=== PATIENT | male | born 1995 | race Caucasian/White ===

== ENCOUNTER 2016-08-20 09:43 | Inpatient (IN) | payer MEDICAID, OTHER ==
[~2016-08-20] VITALS: Ht 172.7 cm; Wt 74.0 kg
[~2016-08-20 09:43] MED LIST: BENA25CA2 PO; LITH300 PO; LORA0.5T PO; QUET25 PO; RISP3TAB23 PO
[2016-08-20 09:53] VITALS: BP 147/91; PULSE 129; RESP 18; TEMP 98.1; O2SAT 99
--- NOTE | 2016-08-20 10:21 | PD ---
HPI Chief Complaint: Psychiatric Symptoms Time Seen by Provider: 10:02 Travel History International Travel<30 days: No Contact w/Intl Traveler<30days: No Traveled to known affect area: No History of Present Illness HPI Patient is a 21-year-old male who was brought to the emergency room by police officers under Schreiber act. Patient reports that he is feeling extremely anxious , and reports that he has been feeling suicidal. patient denies any active plans for suicide. Reports that he does abuse drugs - he does use cocaine recreationally and last used at 5 weeks ago. Patient here for psychiatric evaluation. Patient denies homicidal idealizations PFSH Past Medical History ADHD: No Bipolar Disorder: Yes Anxiety: Yes Depression: Yes Diminished Hearing: No Endocrine: No Genitourinary: No Musculoskeletal: No Respiratory: No Immunizations Current: Yes Migraines: No Schizophrenia: Yes Thyroid Disease: No Ulcer: No Past Surgical History Other Surgery: No Social History Alcohol Use: No Tobacco Use: No Substance Use: No Allergies-Medications (Allergen,Severity, Reaction): Coded Allergies: No Known Allergies (Unverified , 12/09/15) Reported Meds & Prescriptions Reported Meds & Active Scripts Active Quetiapine Fumarate 25 mg (Quetiapine Fumarate) 25 Mg Tab 25 Mg PO HS 15 Days Risperdal (Risperidone) 3 Mg Tab 3 Mg PO HS 30 Days Reported Lorazepam 0.5 Mg Tab 0.5 Mg PO DAILY [place] Carbonate 300 Mg Tab 300 Mg PO QHS Benadryl (Diphenhydramine HCl) 25 Mg Cap 50 Mg PO DAILY Review of Systems General / Constitutional: No: Fever Eyes: No: Visual changes HENT: No: Headaches Cardiovascular: No: Chest Pain or Discomfort Respiratory: No: Shortness of Breath Gastrointestinal: No: Abdominal Pain Genitourinary: No: Dysuria Musculoskeletal: No: Pain Skin: No Rash Neurologic: No: Weakness Psychiatric: Positive: Anxiety, Depression, Suicidal Ideations Endocrine: No: Polydipsia Hematologic/Lymphatic: No: Easy Bruising Physical Exam Narrative GENERAL: No acute distress, nontoxic SKIN: Focused skin assessment warm/dry. HEAD: Atraumatic. Normocephalic. EYES: Pupils equal and round. No scleral icterus. No injection or drainage. ENT: No nasal bleeding or discharge. Mucous membranes pink and moist. NECK: Trachea midline. No JVD. CARDIOVASCULAR: Regular rate and rhythm. No murmur appreciated. RESPIRATORY: No accessory muscle use. Clear to auscultation. Breath sounds equal bilaterally. GASTROINTESTINAL: Abdomen soft, non-tender, nondistended. Hepatic and splenic margins not palpable. MUSCULOSKELETAL: No obvious deformities. No clubbing. No cyanosis. No edema. NEUROLOGICAL: Awake and alert. No obvious cranial nerve deficits. Motor grossly within normal limits. Normal speech. PSYCHIATRIC: Flat affect, patient anxious with suicidal thoughts Data Data Last Documented VS Vital Signs Date Time Temp Pulse Resp B/P Pulse Ox O2 Delivery O2 Flow Rate FiO2 08/20/16 09:53 98.1 129 18 147/91 99 Orders Complete Blood Count With Diff (08/20/16 10:06) Comprehensive Metabolic Panel (08/20/16 10:06) Psych Screen (08/20/16 10:06) Drug Screen, Random Urine (08/20/16 10:06) [facility] Medical Decision Making Medical Screen Exam Complete: Yes Emergency Medical Condition: Yes Interpretation(s) Vital Signs Date Time Temp Pulse Resp B/P Pulse Ox O2 Delivery O2 Flow Rate FiO2 08/20/16 09:53 98.1 129 18 147/91 99 Differential Diagnosis Bipolar disorder with harini, psychosis, anxiety reaction, drug reaction Narrative Course Patient is a 21-year-old male who was brought to emergency room by police officers under Schreiber act. As per police officers, patient complains of suicidal thoughts. Patient reports that he has been extremely anxious and has had suicidal thoughts, patient with no active plans for suicide at this time. Patient does endorse that he does use drugs, specifically cocaine, last use was 5 weeks ago. Patient with no other complaints at this time. Plan to obtain psychiatric screening labs, once cleared, will have patient seen by psychiatrically screeners. Leah Enamorado DO August 20, 2016 10:20
[2016-08-20 10:37] LABS: AUTOMATED NEUTROPHIL # 10.1 TH/MM3 (1.8-7.7); BASOPHIL # 0.1 TH/MM3 (0-0.2); BASOPHIL % 0.4 % (0.0-2.0); EOSINOPHIL % 0.2 % (0.0-4.0); HEMATOCRIT 47.4 % (39.0-51.0); HEMO FLAGS DIFF FINAL; LYMPH % 13.8 % (9.0-44.0); LYMPHOCYTE # 1.9 TH/MM3 (1.0-4.8); MEAN CELL VOLUME 84.4 FL (80.0-100.0); MEAN CORPUSCULAR HEMOGLOBIN 28.3 PG (27.0-34.0); MEAN CORPUSCULAR HGB CONC 33.5 % (32.0-36.0); MONO % 10.7 % (0.0-8.0); NEUT % 74.9 % (16.0-70.0); PLATELET COUNT 238 TH/MM3 (150-450); RED BLOOD COUNT 5.61 MIL/MM3 (4.50-5.90); RED CELL DISTRIBUTION WIDTH 13.7 % (11.6-17.2); WHITE BLOOD COUNT 13.5 TH/MM3 (4.0-11.0)
[2016-08-20] MEDS ORDERED: LORazepam 1 MG TAB PO ONE (10:45)
[2016-08-20 10:48] LABS: AMPHETAMINE, URINE NEG (NEG); BARBITURATES, URINE NEG (NEG); COCAINE, URINE NEG (NEG)
[2016-08-20 10:55] LABS: ANION GAP 9 MEQ/L (5-15); AST (GOT) 75 U/L (15-39); BICARBONATE 25.4 MEQ/L (21.0-32.0); BLOOD UREA NITROGEN 11 MG/DL (7-18); CHLORIDE 103 MEQ/L (98-107); GLOMERULAR FILTRATION RATE 81 ML/MIN (>89); POTASSIUM 3.5 MEQ/L (3.5-5.1); SODIUM (NA) 137 MEQ/L (136-145)
[2016-08-20 10:58] LABS: ALKALINE PHOSPHATASE 82 U/L (45-117); ALT (GPT) 51 U/L (9-52); TOTAL BILIRUBIN ADULT 0.6 MG/DL (0.2-1.0)
[2016-08-20 12:28] VITALS: BP 137/77; PULSE 113; RESP 20; TEMP 98.7; O2SAT 99
[2016-08-20 13:27] VITALS: BP 137/77; PULSE 113; RESP 20; TEMP 97.1; O2SAT 99
[2016-08-20 15:03] VITALS: BP 131/77; PULSE 104; RESP 20; TEMP 99.3; O2SAT 97
--- NOTE | 2016-08-20 15:52 | PD ---
History of Present Illness Chief Complaint: Psychiatric Symptoms Time Seen by Provider: 15:40 Travel History International Travel<30 Days: No Contact w/Intl Traveler<30days: No Known affected area: No Legal Status Legal Status: Schreiber Act Schreiber Act Signed By: Gwen Saravia Schreiber Act Comment: Per DAVID Montano advised he might hurt himself due to his anxiety History of Present Illness: History of Present Illness HPI Patient is a 21-year-old male with history of bipolar disorder, manic as well as psychosis, nos who was brought to the emergency room by police officers under Schreiber act.As per that report the patient reported to police that he may harm himself due to the anxiety as well as" not feeling right in his head". Patient was monitored in J pod. he presented with restless behavior but not agitated. He also reported having had a stroke this morning. EMR is reviewed. the patient was last admitted to [facility] in Dec 2015 . Current toxicology is negative although he reported to staff that he has used cocaine a few days ago. Patient is alert and oriented. He appears internally preoccupied but denies any hallucinations or paranoia. Decreased concentration and attention. Inappropriate affect. he is observed jumping up and down in his room. When asked why he came to the hospital he states " I needed to get to mod". He is unable to tell me what mod is. He then states that he was not sleeping. He admits to feelings of wanting to harm himself and shows me that he has attempted by rubbing his leg. I am unable to obtain any other clinical information at this time and perseveres on "going to mod" . Staff have been unable to obtain collateral information from his family. PFSH Past Medical History ADHD: No Bipolar Disorder: Yes Anxiety: Yes Depression: Yes Diminished Hearing: No Endocrine: No Genitourinary: No Musculoskeletal: No Respiratory: No Immunizations Current: Yes Migraines: No Schizophrenia: Yes Thyroid Disease: No Ulcer: No Past Surgical History Other Surgery: No Psychiatric History Psychiatric History Hx Psychiatric Treatment: patient has been seen at adolescent unit in 2013 and has been seen at adult unit in Dec 2015. he returns with psychotic features hearing voices History of Inpatient Treatment: Yes Guns or firearms in home: No (unknown) Social History Lives with his mother. No other information obtained. Hx Alcohol Use: No Hx Tobacco Use: No Hx Substance Use: No Substance Use Type: Alcohol, Crack, Marijuana, Amphetamines-Stimulants, Nicotine/Cigarettes, GHB, Prescription Medications, Benzos (Valium,Xanax), Cocaine, Synth Opiates-Pain Pills, Cough-Cold Pills Other Substances Used: Polysusbstance Abuse since age 14 per records. Hx of Substance Use Treatment: No Family Psychiatric History unknown Allergies-Medications (Allergen,Severity, Reaction): Coded Allergies: No Known Allergies (Unverified , 12/09/15) Reported Meds & Prescriptions Reported Meds & Active Scripts Active Quetiapine Fumarate 25 mg (Quetiapine Fumarate) 25 Mg Tab 25 Mg PO HS 15 Days Risperdal (Risperidone) 3 Mg Tab 3 Mg PO HS 30 Days Reported Lorazepam 0.5 Mg Tab 0.5 Mg PO DAILY [place] Carbonate 300 Mg Tab 300 Mg PO QHS Benadryl (Diphenhydramine HCl) 25 Mg Cap 50 Mg PO DAILY Review of Systems ROS Limitations: Clinical Condition Exam Alert: Yes [place]: Person Mood: Other (restless) Affect: Other (innapropriatte.) Speech: Clear, Illogical Eye Contact: Fixed Memory Intact: Comment (not tested) Delusions: No (he deneis ) Suicidal: Ideation (reports posiitve by rubbing his leg. ) Homicidal: Ideation (negative) Insight/Judgement poor. impaired MDM Medical Decision Making Medical Record Reviewed: Yes Assessment/Plan 21 year old male with previous history of bipolar disorder with harini who presents rakesh Ed under a BA. At this time patient appears to be experiencing psychotic symptoms and is experiencing difficulty with his thoughts. We have been unable to obtain any collateral from his family. Inpatient psychiatric admission is recommended to further evaluate, maintain safety and adjust psychiatric medications. Orders Complete Blood Count With Diff (08/20/16 10:06) Comprehensive Metabolic Panel (08/20/16 10:06) Psych Screen (08/20/16 10:06) Drug Screen, Random Urine (08/20/16 10:06) Lorazepam (Ativan) (08/20/16 10:45) Diet Regular Basic (08/20/16 Lunch) Diet Regular Basic (08/20/16 Dinner) Results Vital Signs Date Time Temp Pulse Resp B/P Pulse Ox O2 Delivery O2 Flow Rate FiO2 08/20/16 15:03 99.3 104 20 131/77 97 Room Air 08/20/16 13:27 97.1 113 20 137/77 99 08/20/16 12:28 98.7 113 20 137/77 99 Room Air 08/20/16 09:53 98.1 129 18 147/91 99 Laboratory Tests Test 08/20/16 08/20/16 10:20 10:25 White Blood Count 13.5 Red Blood Count 5.61 Hemoglobin 15.9 Hematocrit 47.4 Mean Corpuscular Volume 84.4 Mean Corpuscular Hemoglobin 28.3 Mean Corpuscular Hemoglobin 33.5 Concent Red Cell Distribution Width 13.7 Platelet Count 238 Mean Platelet Volume 8.6 Neutrophils (%) (Auto) 74.9 Lymphocytes (%) (Auto) 13.8 Monocytes (%) (Auto) 10.7 Eosinophils (%) (Auto) 0.2 Basophils (%) (Auto) 0.4 Neutrophils # (Auto) 10.1 Lymphocytes # (Auto) 1.9 Monocytes # (Auto) 1.4 Eosinophils # (Auto) 0.0 Basophils # (Auto) 0.1 CBC Comment DIFF FINAL Differential Comment Sodium Level 137 Potassium Level 3.5 Chloride Level 103 Carbon Dioxide Level 25.4 Anion Gap 9 Blood Urea Nitrogen 11 Creatinine 1.15 Estimat Glomerular Filtration 81 Rate Random Glucose 111 Calcium Level 9.4 Total Bilirubin 0.6 Aspartate Amino Transf 75 (AST/SGOT) Alanine Aminotransferase 51 (ALT/SGPT) Alkaline Phosphatase 82 Total Protein 7.9 Albumin 4.6 Urine Opiates Screen NEG Urine Barbiturates Screen NEG Urine Amphetamines Screen NEG Urine Benzodiazepines Screen NEG Urine Cocaine Screen NEG Urine Cannabinoids Screen NEG Diagnosis Primary Impression: Bipolar disorder, most recent episode manic Admitting Information Admitting Physician Requests: Admit (Dr. Agarwal) Gail Layne August 20, 2016 15:52
[2016-08-20] MEDS ORDERED: diphenhydrAMINE HCL 50 MG CAP PO ONE (16:15)
[2016-08-20] MEDS ORDERED: ALUMINUM/MAGNESIUM/SIMETH 30 ML CUP PO PRN (16:15)
[2016-08-20] MEDS ORDERED: HALOPERIDOL 5 MG TAB PO ONE (16:15)
[2016-08-20] MEDS ORDERED: MAGNESIUM HYDROXIDE SUSP 30 ML CUP PO PRN (16:15)
[2016-08-20 17:02] VITALS: BP 130/76; TEMP 99
[2016-08-20 18:13] VITALS: BP 151/88; PULSE 130; RESP 19; TEMP 98.2; O2SAT 96
[2016-08-21 06:00] VITALS: BP 115/63; PULSE 122; RESP 18; TEMP 97.9; O2SAT 97
[2016-08-21 08:02] LABS: ANION GAP 12 MEQ/L (5-15); BICARBONATE 24.7 MEQ/L (21.0-32.0); BLOOD UREA NITROGEN 11 MG/DL (7-18); CHLORIDE 103 MEQ/L (98-107); GLOMERULAR FILTRATION RATE 76 ML/MIN (>89); HDL CHOLESTEROL 50.7 MG/DL (40.0-60.0); LDL CHOLESTEROL 84 MG/DL (0-99); POTASSIUM 3.3 MEQ/L (3.5-5.1); SODIUM (NA) 140 MEQ/L (136-145)
[2016-08-21 12:57] LABS: HEMOGLOBIN A1b 1.5 %; HEMOGLOBIN Ao 86.1 %; HEMOGLOBIN LA1C 2.1 %; HEMOGLOBIN P3 3.5 %
[2016-08-21] MEDS ORDERED: LORazepam 2 MG/ML VIAL IV PUSH PRN ×4 (13:00)
[2016-08-21] MEDS ORDERED: FLUMAZENIL 0.5 MG/5 ML VIAL IV PUSH PRN (13:00)
[2016-08-21] MEDS ORDERED: LORazepam 2 MG TAB PO PRN (13:00)
[2016-08-21] MEDS ORDERED: LORazepam 1 MG TAB PO PRN (13:00)
--- NOTE | 2016-08-21 13:49 | HHI.HP ---
Provisional Diagnosis Admission Date August 20, 2016 at 16:09 [place] I. 1. Other psychotic disorder, acute decompensation Suspect mood disorder with psychotic features such as bipolar disorder but rule out primary psychotic disorder such as schizoaffective disorder, bipolar type [place] II. Deferred [place] V. GAF is 30 presently Certification of Person's Competence To Provide Express and Informed Consent I have personally examined Dusty Moses , a person being served at [facility] on, August 21, 2016 13:49. Express and informed consent means consent voluntarily given in writing, by a competent person, after sufficient explanation and disclosure of the subject matter involved to enable the person to make a knowing and willful decision without any element of force, fraud, deceit, duress, or other form of constraint or coercion. This person is 18 years of age or older, is not now known to be incompetent to consent to treatment with a guardian advocate, and does not have a health care surrogate or proxy currently making medical treatment decisions. I have found this person to be one of the following: [] Competent to provide express and informed consent, as defined above, for voluntary admission to this facility and is competent to provide express and informed consent for treatment. He/she has the consistent capacity to make well reasoned, willful, and knowing decisions concerning his or her medical or mental health treatment. The person fully and consistently understands the purpose of the admission for examination/placement and is fully capable of personally exercising all rights [place] [x] Incompetent to provide express and informed consent to voluntary admission, and this is incompetent to provide express and informed consent to treatment. The person must be transferred to involuntary status and a petition for a guardian advocate filed with the Circuit Court. [] Refusing to provide express and informed consent to voluntary admission but is competent to provide express and informed consent for treatment. The person must be discharged or transferred to involuntary status. Form shall be completed within 24 hours of a person's arrival at the receiving facility and filed in the clinical record of each person: 1. Admitted on a voluntary basis 2. Permitted to provide express and informed consent to his/her own treatment 3. Allowed to transfer from involuntary to voluntary status 4. Prior to permitting a person to consent to his or her own treatment after having been previously found incompetent to consent to treatment. History of Present Illness Capacity: Lacks Capacity HPI Mr. Moses is a 21-year-old male with a chart history of psychosis versus bipolar disorder who was brought in under a Schreiber act by law enforcement alleging that he did not feel right in his head and stated he might hurt himself. Reviewing our electronic medical record, I see the patient has an extensive history of inpatient psychiatric admissions, most recently in December of last year when I discharged him AGAINST MEDICAL ADVICE. Patient seen and examined. Chart reviewed. Case discussed with nurse on the inpatient unit. On my examination today, the patient presents as quite impulsive and intrusive. He is distractible. Thought process is disorganized with some degree of loosening of associations. He appears internally stimulated although he denies AVH. His affect is somewhat expansive and he is noted to be dancing and otherwise gesticulating in the halls. Of his reason for coming into the hospital he says "I just wanted a refill on my medications or change." He denies any suicidal or homicidal ideation but appears unreliable to contract for safety in his present state. He reports that his sleep and appetite have been fair. Psychiatric interview was somewhat limited because of his thought disorder. He is quite perseverative on discharge. I did endeavor to obtain collateral information from patient's mother and also his father over the phone at the numbers listed in the electronic medical record. I left voicemails for both of them requesting a call back. Past psychiatric history: Patient has a history of psychiatric diagnoses as noted above. He reports that he follows with a psychiatrist by the name of Marina and is prescribed lithium at a dose of 300 mg a day. He reports that he was admitted at a hospital called [facility] about 1 month ago. He denies a history of suicide attempts. Family history: Patient denies any family history of mental illness. Chemical dependency history: Patient denies any abuse of drugs or alcohol. Social history: Patient reports that he lives with his parents. He is single with no children. He does not work. He denies any or legal history. He denies any access to guns or firearms. He denies any jainism or spiritual beliefs. Review of Systems ROS Limitations: Psychotic, Poor Historian Except as stated in HPI: all other systems reviewed are Neg Past Psych History Psychological trauma history No reported trauma history to me. Violence risk - others (6 mos) Lower imminent risk. No HI. Violence risk - self (6 mos) Indeterminate. Substance Abuse History Drugs/Alcohol past 12 months See above. Past Family Social History Coded Allergies: No Known Allergies (Unverified , 12/09/15) Past Medical History See EMR. Active Scripts Quetiapine Fumarate 25 Mg Tab25 Mg PO HS 15 Days Ref 1 Prov:Dominguez Agarwal MD 01/05/16 Risperidone (Risperdal)3 Mg Tab3 Mg PO HS 30 Days Ref 0 Prov:Silverio Harmon MD 11/17/14 Reported Medications Lorazepam 0.5 Mg Tab0.5 Mg PO DAILY 12/09/15 [place] Carbonate (Lithotabs)300 Mg [id number] Mg PO qhs 12/09/15 Diphenhydramine HCl (Benadryl)25 Mg Cap50 Mg PO DAILY 12/09/15 Current Medications Medications (Trade) Dose Ordered Sig/Shadi Route Start Time Stop Time Status Last Admin (Tylenol) 650 mg Q4H PRN PO 08/20/16 16:15 (Milk Of Magnesia Liq) 30 ml DAILY PRN PO 08/20/16 16:15 (Mag-Al Plus Susp Liq) 30 ml Q6H PRN PO 08/20/16 16:15 (Romazicon Inj) 0.2 mg Q1M PRN IV PUSH 08/21/16 13:00 (Ativan) 1 mg Q4H PRN PO 08/21/16 13:00 (Ativan Inj) 1 mg Q4H PRN IV PUSH 08/21/16 13:00 (Ativan) 2 mg Q2H PRN PO 08/21/16 13:00 (Ativan Inj) 2 mg Q2H PRN IV PUSH 08/21/16 13:00 (Ativan Inj) 2 mg Q1H PRN IV PUSH 08/21/16 13:00 (Ativan Inj) 2 mg Q15M PRN IV PUSH 08/21/16 13:00 Family History See above Social History See above Patient's Strengths (min. 2) In a monitored setting. Verbally fluent. Physical Exam Physical examination completed by the ED provider. On my examination today, the patient appears to be in no acute physical distress. He is quite fidgety and hyperkinetic. No abnormal motor movements noted otherwise. Laboratories and vital signs reviewed: Vital Signs Vital Signs Date Time Temp Pulse Resp B/P Pulse Ox O2 Delivery O2 Flow Rate FiO2 08/21/16 06:00 97.9 122 18 115/63 97 08/20/16 15:03 Room Air Lab Results Item Value Date Time White Blood Count 13.5 TH/MM3 H 08/20/16 1020 Hemoglobin 15.9 GM/DL 08/20/16 1020 Platelet Count 238 TH/MM3 08/20/16 1020 Sodium Level 140 MEQ/L 08/21/16 0645 Potassium Level 3.3 MEQ/L L 08/21/16 0645 Chloride Level 103 MEQ/L 08/21/16 0645 Carbon Dioxide Level 24.7 MEQ/L 08/21/16 0645 Blood Urea Nitrogen 11 MG/DL 08/21/16 0645 Creatinine 1.22 MG/DL 08/21/16 0645 Hemoglobin A1c 5.4 % 08/21/16 0645 Aspartate Amino Transf (AST/SGOT) 75 U/L H 08/20/16 1020 Alanine Aminotransferase (ALT/SGPT) 51 U/L 08/20/16 1020 Alkaline Phosphatase 82 U/L 08/20/16 1020 [place] Level LESS THAN 0.1 MEQ/L L 08/21/16 1120 Urine toxicology negative. EKG: Sinus tach with short MD interval. QTc 399ms. Mental Status Examination Patient is casually dressed. He is somewhat disheveled. He is awake and alert and oriented to person and hospital at least. He is somewhat hyperkinetic but no other motoric abnormalities noted. Speech is somewhat rambling and pressured. Language and fund of knowledge are difficult to assess but seem at least average. Mood is somewhat elevated and affect is expansive. Thought process somewhat disorganized with loosening of associations. No isaiah delusions. Denies audiovisual hallucinations but appears internally stimulated. Denies suicidal or homicidal ideation but it is not clear that he is reliably contract for safety in his present state. Insight and judgment are poor. Assessment & Plan Problem List: (1) Other psychotic disorder not due to a substance or known physiological condition ICD Code: F28 Assessment & Plan This is a 21-year-old male with psychiatric history as detailed above who presents under a Schreiber act. On my examination today, the patient seems disinhibited, intrusive/impulsive, internally stimulated and his thoughts are disorganized with loosening of associations. Chart suggests a history of either a primary psychotic disorder with affective features or a mood disorder with psychotic features. In any event, he appears severely decompensated with respect to this illness. His lithium level was undetectable. I will admit the patient to the inpatient psychiatric unit for safety, observation and stabilization. Admit inpatient. Involuntary status. I've completed first opinion. Consult for second opinion. Request healthcare surrogate and guardian advocate. Given ambiguity whether this patient has a primary psychotic or affective illness, I will prefer Zyprexa 10 mg at bedtime to patient's previously prescribed lithium. Ativan as needed for anxiety, Cogentin as needed for EPS, Ambien as needed for sleep. Check a CBC, BMP and TSH in the morning along with a hemoglobin A1c and lipid panel. Vitals every shift. Counselor to see. Disposition planning. Estimated length of stay: 7-9 days. Discharge Planning Pending psychiatric stabilization Request HC Surrog/Guard Advoc?: Yes Dominguez Agarwal MD August 21, 2016 13:49
[2016-08-21] MEDS ORDERED: LORazepam 2 MG/ML VIAL IM PRN (15:15)
[2016-08-21] MEDS ORDERED: BENZTROPINE MESYLATE 2 MG/2 ML VIAL IM PRN (15:15)
[2016-08-21] MEDS ORDERED: POTASSIUM CHLORIDE 10 MEQ CONTROLLED RELEASE TAB PO ONE (16:00)
[2016-08-21 17:14] VITALS: BP 145/86; PULSE 106; RESP 18; TEMP 98.1; O2SAT 97
[2016-08-21] MEDS: LORazepam 1 MG TAB PO PRN (19:13)
[2016-08-21] MEDS ORDERED: OLANZapine ODT 10 MG TAB PO SCH (21:00)
[2016-08-22] MEDS: LORazepam 1 MG TAB PO PRN ×2 (05:24→14:46)
[2016-08-22 06:01] VITALS: BP 147/74; PULSE 18; RESP 18; TEMP 97.8; O2SAT 96
[2016-08-22] MEDS ORDERED: ARIPiprazole 10 MG TAB PO SCH (09:00)
--- NOTE | 2016-08-22 10:16 | HHI.PYPN ---
Subjective Remarks Patient seen and examined. Chart reviewed. Case discussed with nursing staff. I note that patient's oral intake has not been very good today for unclear reasons. He did eat well yesterday. For me today, the patient is fairly needy and intrusive. He remains perseverative on discharge. He appears internally preoccupied. I discuss the concerns raised by his mother, and the patient disregards these and blandly says that he has spoken with his mother and that she feels that he is ready to come home. Some echo phenomena noted. Denies side effects from medications. Review of Systems ROS Limitations: Psychotic, Poor Historian Except as stated in HPI: all other systems reviewed are Neg Objective Alert: Yes [place]: Person Mood: Anxious Affect: Blunted Memory Intact: Comment (not tested) Hallucinations: Auditory (internally preoccupied) Delusions: No Delusion Type: Other (no delusions) Suicidal: Ideation (no SI) Homicidal: Ideation (no HI) Insight/Judgment Poor Remarks No motor abnormalities noted. Thought process somewhat disorganized. Grooming and hygiene fair. Labs Test 08/21/16 11:20 [place] Level LESS THAN 0.1 MEQ/L Labs reviewed. Vitals/IOs Vital Signs Date Time Temp Pulse Resp B/P Pulse Ox O2 Delivery O2 Flow Rate FiO2 08/22/16 06:01 97.8 18 18 147/74 96 08/20/16 15:03 Room Air Assessment & Plan Problem List: (1) Schizophrenia ICD Code: F20.9 Assessment & Plan Titrate Abilify to 15 mg daily to target ongoing psychosis. Plan to ensure good oral tolerability and then switch to long-acting injectable Abilify Maintena. Continue to monitor on the inpatient unit in the meantime. Continue other medications and care as ordered. Justification for Cont. Inpt. Impairment in reality construction. Medication changes in process. High risk for decompensation in a less restrictive environment. Discharge Planning Pending psychiatric stabilization. I anticipate that the patient may be stable for discharge beginning or middle of next week. Request HC Surrog/Guard Advoc?: Yes Problem Qualifiers (1) Schizophrenia: Qualified Code: F20.3 - Undifferentiated schizophrenia Dominguez Agarwal MD August 22, 2016 10:16
[2016-08-22 10:19] VITALS: BP 130/80; PULSE 107; RESP 17; O2SAT 99
--- NOTE | 2016-08-22 14:02 | PD.CONS ---
Provisional Diagnosis Admission Date August 20, 2016 at 16:09 Antigo I. 1. Other psychotic disorder, acute decompensation Suspect mood disorder with psychotic features such as bipolar disorder but rule out primary psychotic disorder such as schizoaffective disorder, bipolar type Antigo II. Deferred Antigo V. GAF is 30 presently History of Present Illness Service Psychiatry Consult Requested By Primary Care Physician No Primary Care Physician HPI As per Dr. Agarwal :Mr. Moses is a 21-year-old male with a chart history of psychosis versus bipolar disorder who was brought in under a [place] act by law enforcement alleging that he did not feel right in his head and stated he might hurt himself. Reviewing our electronic medical record, I see the patient has an extensive history of inpatient psychiatric admissions, most recently in December of last year when I discharged him AGAINST MEDICAL ADVICE.Patient seen and examined. Chart reviewed. Case discussed with nurse on the inpatient unit. On my examination today, the patient presents as quite impulsive and intrusive. He is distractible. Thought process is disorganized with some degree of loosening of associations. He appears internally stimulated although he denies AVH. His affect is somewhat expansive and he is noted to be dancing and otherwise gesticulating in the halls. Of his reason for coming into the hospital he says "I just wanted a refill on my medications or change." He denies any suicidal or homicidal ideation but appears unreliable to contract for safety in his present state. He reports that his sleep and appetite have been fair. Psychiatric interview was somewhat limited because of his thought disorder. He is quite perseverative on discharge. Patient seen today for psychiatric second opinion. Patient is cooperative, disorganized and paranoid. At the beginning refusing to talk with me "I don't know what are you writing in those papers". But with redirection became calmer. He says that he is here because his family is from [place] and he also was born there. However, he then corrected "sorry I was born in [place]". Patient says that he doesn't know why he is here. As we are talking patient is restless, keeps jumping around, when he is asked about the purpose of his moment he says that he just want to exercise. He reports good mood, he says that he is happy here, that he has been doing a lot of friends. However, he says that "there are people here cannot be trusted". He denies suicidal or homicidal ideation, he denies visual and auditory hallucinations. Patient says that he doesn't have any psychiatric history, he says that he doesn't need to take any medications. He continually asked if I am the person who is going to discharge him.. Review of Systems Constitutional: DENIES: Diaphoretic episodes, Fatigue, Fever, Weight gain, Weight loss, Chills, Dizziness, Change in appetite, Night Sweats Endocrine: DENIES: Heat/cold intolerance, Polydipsia, Polyuria, Polyphagia Eyes: DENIES: Blurred vision, Diplopia, Eye inflammation, Eye pain, Vision loss , Photosensitivity, Double Vision Respiratory: DENIES: Apneas, Cough, Snoring, Wheezing, Hemoptysis, Sputum production, Shortness of breath Cardiovascular: DENIES: Chest pain, Palpitations, Syncope, Dyspnea on Exertion , PND, Lower Extremity Edema, Orthopnea, Claudication Gastrointestinal: DENIES: Abdominal pain, Black stools, Bloody stools, Constipation, Diarrhea, Nausea, Vomiting, Difficulty Swallowing, Anorexia Genitourinary: DENIES: Sexual dysfunction, Urinary frequency, Urinary incontinence, Urgency, Hematuria, Dysuria, Nocturia, Penile Discharge, Testicular Pain, Testicular Swelling Musculoskeletal: DENIES: Joint pain, Muscle aches, Stiffness, Joint Swelling, Back pain, Neck pain Integumentary: DENIES: Abnormal pigmentation, Nail changes, Pruritus, Rash Hematologic/lymphatic: DENIES: Bruising, Lymphadenopathy Immunologic/allergic: DENIES: Eczema, Urticaria Neurologic: DENIES: Abnormal gait, Headache, Localized weakness, Paresthesias, Seizures, Speech Problems, Tremor, Poor Balance Psychiatric: COMPLAINS OF: Anxiety, Delusions, DENIES: Confusion, Mood changes , Depression, Hallucinations, Agitation, Suicidal Ideation, Homicidal Ideation Past Family Social History Coded Allergies: No Known Allergies (Unverified , 12/09/15) Active Scripts Quetiapine Fumarate 25 Mg Tab25 Mg PO HS 15 Days Ref 1 Prov:Dominguez Agarwal MD 01/05/16 Risperidone (Risperdal)3 Mg Tab3 Mg PO HS 30 Days Ref 0 Prov:Silverio Harmon MD 11/17/14 Reported Medications Lorazepam 0.5 Mg Tab0.5 Mg PO DAILY 12/09/15 [place] Carbonate (Lithotabs)300 Mg [id number] Mg PO qhs 12/09/15 Diphenhydramine HCl (Benadryl)25 Mg Cap50 Mg PO DAILY 12/09/15 Current Medications Medications (Trade) Dose Ordered Sig/Shadi Route Start Time Stop Time Status Last Admin (Tylenol) 650 mg Q4H PRN PO 08/20/16 16:15 (Milk Of Magnesia Liq) 30 ml DAILY PRN PO 08/20/16 16:15 (Mag-Al Plus Susp Liq) 30 ml Q6H PRN PO 08/20/16 16:15 (Ativan) 1 mg Q6H PRN PO 08/21/16 15:15 08/22/16 05:24 (Ativan Inj) 1 mg Q6H PRN IM 08/21/16 15:15 (Cogentin) 1 mg Q12HR PRN PO 08/21/16 15:15 (Cogentin Inj) 1 mg Q12HR PRN IM 08/21/16 15:15 (Ambien) 5 mg HS PRN PO 08/21/16 15:15 (Abilify) 15 mg DAILY PO 08/23/16 09:00 Social History Patient reports that he lives with his parents. He is single with no children. He does not work. He denies any or legal history. He denies any access to guns or firearms. He denies any moravian or spiritual beliefs. Patient's Strengths (min. 2) In a monitored setting. Verbally fluent. Physical Exam Vital Signs Vital Signs Date Time Temp Pulse Resp B/P Pulse Ox O2 Delivery O2 Flow Rate FiO2 08/22/16 10:19 107 17 130/80 99 08/22/16 06:01 97.8 08/20/16 15:03 Room Air Mental Status Examination Appearance young man, good hygiene, street regular clothing, superficially cooperative, restless, Speech: Rapid, Tangential Orientation: x3 Memory: Unremarkable Thought Process: Loose Association, Tangential Thought Content: Paranoid Hallucination Type: None Attention and Concentration: Good Suicidal Ideation: No Previous Suicide Attempts: No Homicidal Ideation: No Previous Homicide Attempts: No Insight: Poor Judgment: Poor Affect: Irritable, Other (elevated) Mood: Anxious, Irritable Motor Activity: Normal gait Assessment & Plan Problem List: (1) Schizophrenia Assessment & Plan: I have seen and examined this patient for a second opinion, I completely agree and concur with Dr. Agarwal assessment and plan. Consult appreciated. ICD Code: F20.9 Assessment & Plan Estimated LOS: days Request HC Surrog/Guard Advoc?: Yes Problem Qualifiers (1) Schizophrenia: Qualified Code: F20.3 - Undifferentiated schizophrenia Rahul Rubio MD August 22, 2016 14:01
--- NOTE | 2016-08-22 15:48 | EKG ---
Date Performed: 08/21/2016 Time Performed: 14:25:46 PTAGE: 21 years EKG: SINUS TACHYCARDIA WITH SHORT FL INTERVAL POSSIBLE LEFT ATRIAL ENLARGEMENT ABNORMAL RHYTHM E CG PREVIOUS TRACING : 11/09/2014 14.06 Compared to prior tracing no significant change DOCTOR: Jay Winslow Interpretating Date/Time 08/22/2016 15:45:14
[2016-08-22 16:45] VITALS: BP 156/66; PULSE 125; RESP 18; TEMP 99.6; O2SAT 95
[2016-08-22] MEDS: ZOLPIDEM TARTRATE 5 MG TAB PO PRN (22:04)
[2016-08-22] MEDS: ACETAMINOPHEN 325 MG TAB PO PRN (22:28)
[2016-08-23] MEDS: LORazepam 1 MG TAB PO PRN ×2 (00:15→09:38)
[2016-08-23 06:30] VITALS: BP 118/63; PULSE 91; RESP 18; TEMP 97.2; O2SAT 99
[2016-08-23] MEDS ORDERED: ARIPiprazole 15 MG TAB PO SCH (09:00)
--- NOTE | 2016-08-23 09:17 | HHI.PYPN ---
Subjective Remarks Patient seen and examined with nurse. Chart reviewed. Case discussed with nursing staff who reports that the patient is intrusive, has been jumping around on the unit, has been asking for small items and when they are provided says "never mind." For me today, patient remains internally preoccupied. He is extremely discharge focused and intrudes several times on my rounds to ask for this. Thought process scattered. No side effects from medications. Following my departure from the unit, I receive a call from the nurse that the patient is screaming at the OT that he is a child rapist. Patient placed in short sotelo and reportedly remains agitated. I have ordered him medicated with Haldol/Ativan/Benadryl IM ETO. Review of Systems ROS Limitations: Psychotic, Poor Historian Except as stated in HPI: all other systems reviewed are Neg Objective Alert: Yes [place]: Person Mood: Anxious, Oppositional Affect: Blunted Memory Intact: Comment (not formally assessed) Hallucinations: Auditory (Remains int stim) Delusions: No Delusion Type: Other (no delusions) Suicidal: Ideation (no SI) Homicidal: Ideation (no HI) Insight/Judgment Poor Remarks TP disorganized. Speech vague and somewhat rambling. Grooming and hygiene fair at best. No motor abnormalities noted, although I do note the patient bouncing around and appearing generally hyperkinetic. Labs Labs reviewed. CBC and CMP unremarkable. Vitals/IOs Vital Signs Date Time Temp Pulse Resp B/P Pulse Ox O2 Delivery O2 Flow Rate FiO2 08/23/16 06:30 97.2 91 18 118/63 99 08/20/16 15:03 Room Air Assessment & Plan Problem List: (1) Schizophrenia ICD Code: F20.9 Assessment & Plan Titrate Abilify to 20mg daily. Plan remains for Maintena as this agent is reported to be efficacious for him, although I have not yet seen much benefit. To consider a mood stabilizer. Add Haldol PRN severe agitation. Continue to monitor on high-acuity unit. Continue other medications and care as ordered. Case signed out to Dr. Carlos, who will be covering this patient in my absence. Justification for Cont. Inpt. Impairment in reality construction. Impairment in social function. Medication changes in process. High risk for decompensation in a less restrictive environment. Discharge Planning Pending psychiatric stabilization. Request HC Surrog/Guard Advoc?: Yes Problem Qualifiers (1) Schizophrenia: Qualified Code: F20.3 - Undifferentiated schizophrenia Dominguez Agarwal MD August 23, 2016 09:17
[2016-08-23 10:34] LABS: AUTOMATED NEUTROPHIL # 5.4 TH/MM3 (1.8-7.7); BASOPHIL % 0.5 % (0.0-2.0); EOSINOPHIL # 0.1 TH/MM3 (0-0.4); EOSINOPHIL % 0.9 % (0.0-4.0); HEMATOCRIT 44.3 % (39.0-51.0); HEMO FLAGS DIFF FINAL; LYMPH % 22.4 % (9.0-44.0); MEAN CELL VOLUME 85.6 FL (80.0-100.0); MEAN CORPUSCULAR HEMOGLOBIN 28.4 PG (27.0-34.0); MEAN CORPUSCULAR HGB CONC 33.1 % (32.0-36.0); MONO % 14.4 % (0.0-8.0); NEUT % 61.8 % (16.0-70.0); PLATELET COUNT 215 TH/MM3 (150-450); RED BLOOD COUNT 5.17 MIL/MM3 (4.50-5.90); RED CELL DISTRIBUTION WIDTH 13.9 % (11.6-17.2); WHITE BLOOD COUNT 8.8 TH/MM3 (4.0-11.0)
[2016-08-23 10:57] LABS: ANION GAP 8 MEQ/L (5-15); BICARBONATE 25.8 MEQ/L (21.0-32.0); BLOOD UREA NITROGEN 10 MG/DL (7-18); CHLORIDE 105 MEQ/L (98-107); GLOMERULAR FILTRATION RATE 109 ML/MIN (>89); MAGNESIUM 2.2 MG/DL (1.5-2.5); POTASSIUM 3.8 MEQ/L (3.5-5.1); SODIUM (NA) 139 MEQ/L (136-145)
[2016-08-23 11:07] LABS: HDL CHOLESTEROL 45.9 MG/DL (40.0-60.0); LDL CHOLESTEROL 63 MG/DL (0-99)
[2016-08-23] MEDS ORDERED: LORazepam 2 MG/ML VIAL IM ONE (12:00)
[2016-08-23] MEDS ORDERED: diphenhydrAMINE HCL 50 MG/ML VIAL IM ONE (12:00)
[2016-08-23] MEDS ORDERED: HALOPERIDOL LACTATE 5 MG/ML AMP IM ONE (12:00)
[2016-08-23 13:14] LABS: HEMOGLOBIN A1b 1.4 %; HEMOGLOBIN Ao 86.5 %; HEMOGLOBIN LA1C 1.9 %; HEMOGLOBIN P3 3.5 %
[2016-08-23 15:45] VITALS: BP 120/66; PULSE 108; RESP 18; TEMP 98.3; O2SAT 97
[2016-08-24 06:32] VITALS: BP 125/79; PULSE 90; RESP 18; TEMP 98; O2SAT 95
--- NOTE | 2016-08-24 13:45 | HHI.PYPN ---
Subjective Remarks Patient seen and examined with nurse. Chart reviewed. Case discussed with nursing staff who reports patient remains fairly hyperkinetic and his thought process scattered. On my examination today, the patient is intrusive and fairly discharge focused. Thought process does indeed remain fairly disorganized with significant loosening of associations. Some echophenomena present. No side effects from medications. No physical complaints. Review of Systems ROS Limitations: Poor Historian Except as stated in HPI: all other systems reviewed are Neg Objective Alert: Yes [place]: Person Mood: Anxious Affect: Blunted (remains somewhat blunted) Memory Intact: Comment (not formally assessed) Hallucinations: Auditory (Internally preoccupied) Delusions: No Delusion Type: Other (no isaiah delusions) Suicidal: Ideation (no SI) Homicidal: Ideation (no HI) Insight/Judgment Poor Remarks No motor abnormalities noted. Speech somewhat vague in terms of content and rambling. Labs Labs reviewed. Vitals/IOs Vital Signs Date Time Temp Pulse Resp B/P Pulse Ox O2 Delivery O2 Flow Rate FiO2 08/24/16 06:32 98.0 90 18 125/79 95 08/20/16 15:03 Room Air Assessment & Plan Problem List: (1) Schizophrenia ICD Code: F20.9 Assessment & Plan Continue Abilify titration to 25mg daily; hoping for better therapeutic response at higher doses. To consider adding back a mood stabilizer. Continue to monitor on high acuity unit. Continue other medications and care as ordered. Justification for Cont. Inpt. Impairment in reality construction. Medication changes ongoing. High risk for decompensation in a less restrictive environment. Discharge Planning Pending psychiatric stabilization Request HC Surrog/Guard Advoc?: Yes Problem Qualifiers (1) Schizophrenia: Qualified Code: F20.3 - Undifferentiated schizophrenia Dominguez Agarwal MD August 24, 2016 13:45
[2016-08-24] MEDS ORDERED: PILL SPLITTER OTHER PRN (14:30)
[2016-08-24] MEDS: HALOPERIDOL LACTATE 5 MG/ML AMP IM PRN (15:45)
[2016-08-24 16:40] VITALS: BP 129/89; PULSE 80; RESP 16; TEMP 98.1; O2SAT 98
[2016-08-24] MEDS: ZOLPIDEM TARTRATE 5 MG TAB PO PRN (21:16)
[2016-08-25] MEDS: LORazepam 1 MG TAB PO PRN ×3 (04:02→21:01)
[2016-08-25 06:00] VITALS: BP 137/75; PULSE 80; RESP 17; TEMP 97.5
[2016-08-25] MEDS: BENZTROPINE MESYLATE 1 MG TAB PO PRN (07:46)
--- NOTE | 2016-08-25 10:17 | HHI.PYPN ---
Subjective Remarks Patient seen in day room with nurse Marley, patient continues intrusive somewhat perseverative related to discharge plans, when I was unable to respond according to his wishes to became somewhat angry and irritable trying some increase somatic complaints starting to tilt his neck to the left side as if having some type of muscle dystonia though it appeared quite evident that this was self induced. Compliant medications. For now continue treatment Review of Systems Except as stated in HPI: all other systems reviewed are Neg Objective Alert: Yes [place]: Person Mood: Anxious Affect: Blunted (remains somewhat blunted) Memory Intact: Comment (not formally assessed) Hallucinations: Auditory (Internally preoccupied) Delusions: No Delusion Type: Other (no isaiah delusions) Suicidal: Ideation (no SI) Homicidal: Ideation (no HI) Insight/Judgment Very poor Vitals/IOs Vital Signs Date Time Temp Pulse Resp B/P Pulse Ox O2 Delivery O2 Flow Rate FiO2 08/25/16 06:00 97.5 80 17 137/75 08/24/16 16:40 98 Assessment & Plan Problem List: (1) Schizophrenia ICD Code: F20.9 Assessment & Plan Estimated LOS: days patient remains vigilant somewhat paranoid and disorganized confusing with his responses. Compliant medications Justification for Cont. Inpt. This time patient will decompensate if placed in a lower level of care Discharge Planning To be determined Request HC Surrog/Guard Advoc?: Yes Problem Qualifiers (1) Schizophrenia: Qualified Code: F20.3 - Undifferentiated schizophrenia Tucker Carlos MD August 25, 2016 10:17
[2016-08-25] MEDS: ARIPiprazole 10 MG TAB PO SCH (10:25)
[2016-08-25 18:22] VITALS: BP 153/84; PULSE 131; RESP 16; TEMP 98.3; O2SAT 100
[2016-08-25] MEDS: ZOLPIDEM TARTRATE 5 MG TAB PO PRN (21:01)
[2016-08-26] MEDS: LORazepam 1 MG TAB PO PRN (02:37)
[2016-08-26 06:12] VITALS: BP 155/77; PULSE 100; RESP 17; TEMP 98.3; O2SAT 96
[2016-08-26] MEDS: HALOPERIDOL LACTATE 5 MG/ML AMP IM PRN (07:36)
[2016-08-26] MEDS: ARIPiprazole 10 MG TAB PO SCH (09:41)
--- NOTE | 2016-08-26 11:23 | HHI.PYPN ---
Subjective Remarks Patient seen in [place] with nurse Lillie and counselor Antwan, chart reviewed , patient continues markedly intrusive with what appears to be significant short term memory issues he is quite perseverative with his questions. Focusing mainly on discharge. However there is also an underlying irritability and anger that seems to flare when he is told "no". Perhaps a trial of a mood stabilizer might be appropriate. With permission of health care surrogate/ guardian advocate will offer Tegretol 100 mg twice a day, continue other medications no change Review of Systems Except as stated in HPI: all other systems reviewed are Neg Objective Alert: Yes [place]: Person Mood: Anxious Affect: Blunted (remains somewhat blunted) Memory Intact: Comment (not formally assessed) Hallucinations: Auditory (Internally preoccupied) Delusions: No Delusion Type: Other (no isaiah delusions but at times appears quite vigilant suspicious with an underlying anger) Suicidal: Ideation (no SI) Homicidal: Ideation (no HI) Insight/Judgment Very poor Vitals/IOs Vital Signs Date Time Temp Pulse Resp B/P Pulse Ox O2 Delivery O2 Flow Rate FiO2 08/26/16 06:12 98.3 100 17 155/77 96 Assessment & Plan Problem List: (1) Schizophrenia ICD Code: F20.9 Assessment & Plan Estimated LOS: days patient continues quite disorganized the underlying anger and irritability please see medication trial above Justification for Cont. Inpt. At this time patient decompensate placed in a lower level of care Discharge Planning To be determined Request HC Surrog/Guard Advoc?: Yes Problem Qualifiers (1) Schizophrenia: Qualified Code: F20.3 - Undifferentiated schizophrenia Tucker Carlos MD August 26, 2016 11:23
[2016-08-26 18:00] VITALS: BP 132/62; PULSE 84; RESP 18; TEMP 98.2; O2SAT 97
[2016-08-26] MEDS: ZOLPIDEM TARTRATE 5 MG TAB PO PRN (21:32)
[2016-08-27 06:06] VITALS: BP 131/60; PULSE 72; RESP 17; TEMP 97.9; O2SAT 95
[2016-08-27] MEDS: ARIPiprazole 10 MG TAB PO SCH (09:21)
[2016-08-27] MEDS: LORazepam 1 MG TAB PO PRN ×2 (09:21→16:00)
--- NOTE | 2016-08-27 11:15 | HHI.PYPN ---
Subjective Remarks Patient seen in [place] with nurse Annabelle, patient continues to perseverate on discharge though with slightly decrease intensity this a.m., also decrease irritability. Patient compliant with his medications including the chewable Tegretol. Review of Systems Except as stated in HPI: all other systems reviewed are Neg Objective Alert: Yes [place]: Person Mood: Anxious Affect: Blunted (remains somewhat blunted) Memory Intact: Comment (not formally assessed) Hallucinations: Auditory (Internally preoccupied) Delusions: No Delusion Type: Other (no isaiah delusions but at times appears quite vigilant suspicious with an underlying anger) Suicidal: Ideation (no SI) Homicidal: Ideation (no HI) Insight/Judgment Very poor Vitals/IOs Vital Signs Date Time Temp Pulse Resp B/P Pulse Ox O2 Delivery O2 Flow Rate FiO2 08/27/16 06:06 97.9 72 17 131/60 95 Assessment & Plan Problem List: (1) Schizophrenia ICD Code: F20.9 Assessment & Plan Estimated LOS: days patient continues showing little insight into his issues continue some underlying anger and irritability though somewhat softer today, so far showing no issues or problems with the Tegretol. For now continue treatment Justification for Cont. Inpt. 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
--- NOTE | 2016-08-27 11:26 | HHI.PYPN ---
Subjective Remarks Patient seen in day room with nurse Annabelle, patient continues to perseverate on discharge though somewhat softer with this vigilance and paranoia, though the underlying lability is still noted in his facial expression. He is compliant with his medications. Showing no side effects at this time of this chewable Tegretol. For now continue treatment Review of Systems Except as stated in HPI: all other systems reviewed are Neg Objective Alert: Yes [place]: Person Mood: Anxious Affect: Blunted (remains somewhat blunted) Memory Intact: Comment (not formally assessed) Hallucinations: Auditory (Internally preoccupied) Delusions: No Delusion Type: Other (no isaiah delusions but at times appears quite vigilant suspicious with an underlying anger) Suicidal: Ideation (no SI) Homicidal: Ideation (no HI) Insight/Judgment Very poor Vitals/IOs Vital Signs Date Time Temp Pulse Resp B/P Pulse Ox O2 Delivery O2 Flow Rate FiO2 08/27/16 06:06 97.9 72 17 131/60 95 Assessment & Plan Problem List: (1) Schizophrenia ICD Code: F20.9 Assessment & Plan Estimated LOS: days patient continues angry with an underlying volatility, compliant medications, continues to show no insight into his issues. For now continue treatment Justification for Cont. Inpt. 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
[2016-08-27 20:36] VITALS: BP 134/68; PULSE 97; RESP 18; TEMP 98.6; O2SAT 96
[2016-08-28 06:03] VITALS: BP 126/57; PULSE 81; RESP 18; TEMP 97.8; O2SAT 95
[2016-08-28] MEDS: ARIPiprazole 10 MG TAB PO SCH (09:03)
[2016-08-28] MEDS: LORazepam 1 MG TAB PO PRN ×2 (09:04→18:41)
[2016-08-28] MEDS: BENZTROPINE MESYLATE 1 MG TAB PO PRN (09:04)
--- NOTE | 2016-08-28 15:22 | HHI.PYPN ---
Subjective Remarks Patient seen in day room with nurse Maryse, chart review, patient compliant medications. Patient continues intrusive repetitive focusing on discharge. Will there is some decrease in his vigilance and his level of anger. For now continue treatment. Patient scheduled for [facility] tomorrow Review of Systems Except as stated in HPI: all other systems reviewed are Neg Objective Alert: Yes [place]: Person Mood: Anxious Affect: Blunted (remains somewhat blunted) Memory Intact: Comment (not formally assessed) Hallucinations: Auditory (Internally preoccupied) Delusions: No Delusion Type: Other (no isaiah delusions but at times appears quite vigilant suspicious with an underlying anger) Suicidal: Ideation (no SI) Homicidal: Ideation (no HI) Insight/Judgment Very poor Vitals/IOs Vital Signs Date Time Temp Pulse Resp B/P Pulse Ox O2 Delivery O2 Flow Rate FiO2 08/28/16 06:03 97.8 81 18 126/57 95 Assessment & Plan Problem List: (1) Schizophrenia ICD Code: F20.9 Assessment & Plan Estimated LOS: days patient continues intrusive perseverative, some irritability and anger underlying. Patient scheduled for [facility] tomorrow Justification for Cont. Inpt. At this time patient will decompensate placed in the lower level of care Discharge Planning To be determined Request HC Surrog/Guard Advoc?: Yes Problem Qualifiers (1) Schizophrenia: Qualified Code: F20.3 - Undifferentiated schizophrenia Tucker Carlos MD August 28, 2016 15:22
[2016-08-28 18:05] VITALS: BP 149/70; PULSE 101; RESP 18; TEMP 98.7; O2SAT 18
[2016-08-28] MEDS: ZOLPIDEM TARTRATE 5 MG TAB PO PRN (20:01)
[2016-08-29] MEDS: LORazepam 1 MG TAB PO PRN ×3 (00:04→17:22)
[2016-08-29 05:33] VITALS: BP 142/66; PULSE 97; RESP 18; TEMP 98.7; O2SAT 96
[2016-08-29] MEDS: ARIPiprazole 10 MG TAB PO SCH (08:20)
[2016-08-29 15:09] VITALS: BP 126/70; PULSE 81; RESP 16; TEMP 98.7; O2SAT 98
--- NOTE | 2016-08-29 15:57 | HHI.PYPN ---
Subjective Remarks Patient seen in [place] [address] retained by Civil Project Engineer Ga. is stating also the patient is not slept at all last night will discontinue the Ambien and offer trazodone 50 mg at at bedtime. Staff also says patient has had an elevated RPR at prior hospitalization will recheck that value and also order HIV test. Patient continues to show no insight into his disease perseverates on discharge show some subtle anger when he does not get his way with this Review of Systems Except as stated in HPI: all other systems reviewed are Neg Objective Alert: Yes [place]: Person Mood: Anxious Affect: Blunted (remains somewhat blunted) Memory Intact: Comment (not formally assessed) Hallucinations: Auditory (Internally preoccupied) Delusions: No Delusion Type: Other (no isaiah delusions but at times appears quite vigilant suspicious with an underlying anger) Suicidal: Ideation (no SI) Homicidal: Ideation (no HI) Insight/Judgment Very poor Vitals/IOs Vital Signs Date Time Temp Pulse Resp B/P Pulse Ox O2 Delivery O2 Flow Rate FiO2 08/29/16 15:09 98.7 81 16 126/70 98 Assessment & Plan Problem List: (1) Schizophrenia ICD Code: F20.9 Assessment & Plan Estimated LOS: days patient remains disorganized confused perseverative somewhat irritable. Please see lab testing to be order also. Completion medication change related to insomnia Justification for Cont. Inpt. At this time patient will decompensate placed in a lower level of care Discharge Planning To be determined Request HC Surrog/Guard Advoc?: Yes Problem Qualifiers (1) Schizophrenia: Qualified Code: F20.3 - Undifferentiated schizophrenia Tucker Carlos MD August 29, 2016 15:57
[2016-08-29] MEDS: traZODone HCL 50 MG TAB PO SCH (20:53)
[2016-08-29] MEDS ORDERED: traZODone HCL 50 MG TAB PO SCH (21:00)
[2016-08-30 06:21] VITALS: BP 103/58; PULSE 80; RESP 18; TEMP 98; O2SAT 99
[2016-08-30] MEDS: LORazepam 1 MG TAB PO PRN ×2 (08:51→15:25)
[2016-08-30] MEDS: ARIPiprazole 10 MG TAB PO SCH (08:51)
--- NOTE | 2016-08-30 15:08 | HHI.PYPN ---
Subjective Remarks Patient seen in [place] with nurse Latisha, chart reviewed. Patient slept better last night with the trazodone. The patient continues to perseverate on discharge showing very little in the way of short-term memory with this. He is compliant with his medications Review of Systems Except as stated in HPI: all other systems reviewed are Neg Objective Alert: Yes [place]: Person Mood: Anxious Affect: Blunted (remains somewhat blunted) Memory Intact: Comment (not formally assessed) Hallucinations: Auditory (Internally preoccupied) Delusions: No Delusion Type: Other (no isaiah delusions but at times appears quite vigilant suspicious with an underlying anger) Suicidal: Ideation (no SI) Homicidal: Ideation (no HI) Insight/Judgment Very poor Vitals/IOs Vital Signs Date Time Temp Pulse Resp B/P Pulse Ox O2 Delivery O2 Flow Rate FiO2 08/30/16 06:21 98.0 80 18 103/58 99 Assessment & Plan Problem List: (1) Schizophrenia ICD Code: F20.9 Assessment & Plan Estimated LOS: days patient continues distracted perseverative no insight, now continue treatment Justification for Cont. Inpt. At this time patient will decompensate if placed in the lower level of care Discharge Planning To be determined Request HC Surrog/Guard Advoc?: Yes Problem Qualifiers (1) Schizophrenia: Qualified Code: F20.3 - Undifferentiated schizophrenia Tucker Carlos MD August 30, 2016 15:08
[2016-08-30 18:13] VITALS: BP 133/58; PULSE 73; RESP 16; TEMP 97.5; O2SAT 98
[2016-08-30] MEDS: traZODone HCL 50 MG TAB PO SCH (20:55)
[2016-08-31 06:11] VITALS: BP 115/57; PULSE 77; RESP 17; TEMP 97.2; O2SAT 97
[2016-08-31] MEDS: ARIPiprazole 10 MG TAB PO SCH (09:00)
--- NOTE | 2016-08-31 15:36 | HHI.PYPN ---
Subjective Remarks Patient was seen and case discussed with nursing. Patient remains perseverative on discharge. This poor insight into his mental health and reasons for admission. On occasion he jumps two times for no apparent reason. Per nursing he is behaving well, compliant with medications. Affect is blunted. Patient denies suicidal ideation intent or plan. Denies auditory visual hallucinations. Asking for a nicotine patch Objective Alert: Yes [place]: Person, Place Mood: Anxious Affect: Blunted (remains somewhat blunted) Memory Intact: Comment (not formally assessed) Hallucinations: Auditory (Internally preoccupied) Delusions: No Delusion Type: Other (no isaiah delusions but at times appears quite vigilant suspicious with an underlying anger) Suicidal: Ideation (no SI) Homicidal: Ideation (no HI) Insight/Judgment Poor Vitals/IOs Vital Signs Date Time Temp Pulse Resp B/P Pulse Ox O2 Delivery O2 Flow Rate FiO2 08/31/16 06:11 97.2 77 17 115/57 97 Assessment & Plan Problem List: (1) Schizophrenia ICD Code: F20.9 Assessment & Plan Continue current treatment plan Justification for Cont. Inpt. Patient will decompensate in a less restrictive setting Request HC Surrog/Guard Advoc?: Yes Problem Qualifiers (1) Schizophrenia: Qualified Code: F20.3 - Undifferentiated schizophrenia Jerod Mac DO August 31, 2016 15:36
[2016-08-31 18:09] VITALS: BP 129/66; PULSE 83; RESP 17; TEMP 98.5; O2SAT 99
[2016-08-31] MEDS: traZODone HCL 50 MG TAB PO SCH (20:07)
[2016-08-31] MEDS: REMOVE OLD NICODERM (NICOTINE) PATCH T-DERMAL SCH (20:07)
[2016-09-01 06:18] VITALS: BP 105/58; PULSE 66; RESP 17; TEMP 97.5; O2SAT 98
[2016-09-01] MEDS: ARIPiprazole 10 MG TAB PO SCH (08:21)
[2016-09-01] MEDS: NICOTINE 14 MG/24 HR PATCH T-DERMAL SCH (08:22)
--- NOTE | 2016-09-01 15:59 | HHI.PYPN ---
Subjective Remarks Patient was seen and case discussed with nursing. Per nursing patient is perseverative and see me all day. During the interview, after 1 sentence he attempts to leave the interview. He remains preoccupied and responding to internal stimuli is doing his best to hide it. Per says he doesn't hear voices and then he says the voices are telling him that he should be discharged. At times mildly skipping and jumping up and down for no reason. Sleeping and eating well per nursing. Compliant with medications Objective Alert: Yes [place]: Person, Place Mood: Anxious Affect: Labile Memory Intact: Comment (not formally assessed) Hallucinations: Auditory (Internally preoccupied) Delusions: No Delusion Type: Other (no isaiah delusions but at times appears quite vigilant suspicious with an underlying anger) Suicidal: Ideation (no SI) Homicidal: Ideation (no HI) Insight/Judgment Poor Vitals/IOs Vital Signs Date Time Temp Pulse Resp B/P Pulse Ox O2 Delivery O2 Flow Rate FiO2 09/01/16 06:18 97.5 66 17 105/58 98 Assessment & Plan Problem List: (1) Schizophrenia ICD Code: F20.9 Assessment & Plan Continue current treatment plan Justification for Cont. Inpt. 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
[2016-09-01] MEDS: LORazepam 1 MG TAB PO PRN ×2 (16:55→23:07)
[2016-09-01 20:03] VITALS: BP 130/72; PULSE 92; RESP 18; TEMP 99.4; O2SAT 99
[2016-09-01] MEDS: traZODone HCL 50 MG TAB PO SCH (20:18)
[2016-09-01] MEDS: REMOVE OLD NICODERM (NICOTINE) PATCH T-DERMAL SCH (20:19)
[2016-09-02 06:04] VITALS: BP 111/64; PULSE 100; RESP 18; TEMP 98.7; O2SAT 100
[2016-09-02] MEDS: NICOTINE 14 MG/24 HR PATCH T-DERMAL SCH (09:00)
[2016-09-02] MEDS: ARIPiprazole 10 MG TAB PO SCH (09:00)
[2016-09-02] MEDS: LORazepam 1 MG TAB PO PRN ×2 (09:44→20:10)
[2016-09-02 14:57] LABS: RAPID PLASMA REAGIN SCREEN REACTIVE (NON-REACTVE)
--- NOTE | 2016-09-02 17:24 | HHI.PYPN ---
Subjective Remarks Patient seen in [place] with nurse Latisha, chart review. Patient continues to be intrusive showing very poor short term memory and retention continues to focus on discharge labs test last week show negative HIV testing though his RPR is positive at a titer of 1-8 will consult hospitalist related to this Review of Systems Except as stated in HPI: all other systems reviewed are Neg Objective Alert: Yes [place]: Person, Place Mood: Anxious Affect: Labile Memory Intact: Comment (not formally assessed) Hallucinations: Auditory (Internally preoccupied) Delusions: No Delusion Type: Other (no isaiah delusions but at times appears quite vigilant suspicious with an underlying anger) Suicidal: Ideation (no SI) Homicidal: Ideation (no HI) Insight/Judgment Very poor Vitals/IOs Vital Signs Date Time Temp Pulse Resp B/P Pulse Ox O2 Delivery O2 Flow Rate FiO2 09/02/16 06:04 98.7 100 18 111/64 100 Assessment & Plan Problem List: (1) Schizophrenia ICD Code: F20.9 Assessment & Plan Estimated LOS: days patient continues intrusive with poor short-term memory retention, lab results indicated need to refer to hospitalist see above Justification for Cont. Inpt. At this time patient will decompensate if placed in a lower level of care Discharge Planning To be determined Request HC Surrog/Guard Advoc?: Yes Problem Qualifiers (1) Schizophrenia: Qualified Code: F20.3 - Undifferentiated schizophrenia Tucker Carlos MD September 02, 2016 17:24
[2016-09-02 18:56] VITALS: BP 126/69; PULSE 86; RESP 18; TEMP 98.1; O2SAT 99
[2016-09-02] MEDS: traZODone HCL 50 MG TAB PO SCH (20:10)
[2016-09-02] MEDS: REMOVE OLD NICODERM (NICOTINE) PATCH T-DERMAL SCH (20:10)
[2016-09-03 05:48] VITALS: BP 109/62; PULSE 86; RESP 18; TEMP 97.9; O2SAT 99
[2016-09-03] MEDS: NICOTINE 14 MG/24 HR PATCH T-DERMAL SCH (09:00)
[2016-09-03] MEDS: ARIPiprazole 10 MG TAB PO SCH (09:00)
[2016-09-03] MEDS: LORazepam 1 MG TAB PO PRN ×2 (09:09→20:51)
--- NOTE | 2016-09-03 12:26 | HHI.PYPN ---
Subjective Remarks Patient seen in [place] with nurse Latisha, patient continues intrusive perseverative with very little retention of responses. The continues hopping from 1 foot to another thing somewhat childlike, also continue somewhat irritable. We continue to await hospice consult related to the lab values as mentioned yesterday. Otherwise for now continue treatment Review of Systems Except as stated in HPI: all other systems reviewed are Neg Objective Alert: Yes [place]: Person, Place Mood: Anxious Affect: Labile Memory Intact: Comment (not formally assessed) Hallucinations: Auditory (Internally preoccupied) Delusions: No Delusion Type: Other (no isaiah delusions but at times appears quite vigilant suspicious with an underlying anger) Suicidal: Ideation (no SI) Homicidal: Ideation (no HI) Insight/Judgment Very poor Vitals/IOs Vital Signs Date Time Temp Pulse Resp B/P Pulse Ox O2 Delivery O2 Flow Rate FiO2 09/03/16 05:48 97.9 86 18 109/62 99 Assessment & Plan Problem List: (1) Schizophrenia ICD Code: F20.9 Assessment & Plan Estimated LOS: days patient continues childlike intrusive with no insight. Needing significant redirections. Continue to await hospitalist reconsult Justification for Cont. Inpt. At this time patient will decompensate if placed in a lower level of care Discharge Planning To be determined Request HC Surrog/Guard Advoc?: Yes Problem Qualifiers (1) Schizophrenia: Qualified Code: F20.3 - Undifferentiated schizophrenia Tucker Carlos MD September 03, 2016 12:26
--- NOTE | 2016-09-03 13:14 | PD.CONS ---
[facility] By Reason for Consult Syphilis Primary Care Physician No Primary Care Physician Diagnoses: (1) Bipolar disorder, most recent episode manic (2) Unspecified psychosis (3) Schizophrenia (4) Syphilis, late latent History of Present Illness 21-year-old male with a known history of bipolar disorder, multiple psychotic episodes and recurrent psychiatric admission brought in under Schreiber act for reportedly stating he would hurt himself. Patient is very impulsive and intrusive. He initially agreed to start talking to me in his room and suddenly walked out. He then proceeded to follow me and states he will take the treatment for syphilis. He inquired whether or not he could go home once he gets to treatment. The history is therefore limited as he did not want to continue with the history on allow for proper examination. Given the patient's psychiatric state, I did explore treatment options for syphilis with him. He is agreeable to getting treatment. He states he does not know whether or not he was never treated. He inquired if the treatment will clear the infection completely. I advised him he will need follow-up and he states he can follow- up with his primary care doctor. He denies any skin or penile lesions. He denies any change in his vision, or any other neurological symptoms. He is disorganized and very focused on being discharged from the hospital. Based on review of the records. Apparently the patient was found tested positive for syphilis on the medical screen about 2 years ago. He was not treated at that time because he is RPR titer was 1:2. During that time he admitted to be back sexual and reports that one of his partners was diagnosed with syphilis 8 months prior. Repeat lab work during this hospitalization show a 4 fold increase of RPR titer to 1:8 Review of Systems ROS Limitations: Refused (unable to perform as patient refused.) Past Family Social History Allergies: Coded Allergies: No Known Allergies (Unverified , 12/09/15) Past Medical History Multiple admissions for psychiatric issues. Past Surgical History No known surgical history. Reported Medications Reported Meds & Active Scripts Active Quetiapine Fumarate 25 mg (Quetiapine Fumarate) 25 Mg Tab 25 Mg PO HS 15 Days Risperdal (Risperidone) 3 Mg Tab 3 Mg PO HS 30 Days Reported Lorazepam 0.5 Mg Tab 0.5 Mg PO DAILY [place] Carbonate 300 Mg Tab 300 Mg PO QHS Benadryl (Diphenhydramine HCl) 25 Mg Cap 50 Mg PO DAILY Family History Unable to obtain, patient will not cooperate Social History Patient denies alcohol or drug use. Physical Exam Vital Signs Vital Signs Date Time Temp Pulse Resp B/P Pulse Ox O2 Delivery O2 Flow Rate FiO2 09/03/16 05:48 97.9 86 18 109/62 99 09/02/16 18:56 98.1 86 18 126/69 99 Physical Exam Patient refused to be examined. He states he has no skin lesions. He is pacing around the halls. No walking difficulties. He denies any vision or hearing loss. Assessment and Plan Problem List: (1) Schizophrenia ICD Code: F20.9 Status: Acute (2) Bipolar disorder, most recent episode manic ICD Code: F31.10 Status: Acute (3) Syphilis, late latent ICD Code: A52.8 Status: Acute Assessment and Plan 21-year-old male with: Schizophrenia/bipolar disorder: Treatment per psychiatry. Syphilis, appeared to be latent syphilis based on the timeline. He was positive about 2 years ago. RPR titer increased 4 folds. Patient or family does not know whether or not he has had any treatment. Based on his psychiatric history and lack of compliance, best course of action for this patient currently I believe is to treat for asymptomatic latent syphilis. He denies skin lesions or neurological issues. He has had a long history of psychiatric problems even prior to his diagnosis of syphilis. He does not want any other test or be examined. However he is agreeable to getting treatment. He was advised that treatment will consist of an IM injection of penicillin weekly for 3 weeks. He states that he can get one of the injections here and get the rest at his primary care physician. However he could not tell me the name of his PCP. He is very focused on discharge. Ordered penicillin G 2.4 million units weekly for 3 weeks. We'll need to ensure appropriate follow-up to continue treatment if the patient is discharge prior to completion of treatment here. He will need repeat labs in about 6 months after treatment. Thank you for allowing me to participate in the care of Mr. Moses. Will continue to follow. Problem Qualifiers (1) Schizophrenia: Qualified Code: F20.3 - Undifferentiated schizophrenia Patrick Briceno MD September 03, 2016 13:14
[2016-09-03] MEDS: PENICILLIN G BENZATHINE 2,400,000 UNITS/4 ML SYRINGE IM SCH (16:00)
[2016-09-03 18:00] VITALS: BP 130/70; PULSE 109; RESP 19; TEMP 97.7; O2SAT 98
[2016-09-03] MEDS: traZODone HCL 50 MG TAB PO SCH (20:51)
[2016-09-03] MEDS: REMOVE OLD NICODERM (NICOTINE) PATCH T-DERMAL SCH (20:53)
[2016-09-04 06:05] VITALS: BP 130/59; PULSE 92; RESP 18; TEMP 97.9; O2SAT 98
[2016-09-04] MEDS: NICOTINE 14 MG/24 HR PATCH T-DERMAL SCH (08:26)
[2016-09-04] MEDS: ARIPiprazole 10 MG TAB PO SCH (08:26)
--- NOTE | 2016-09-04 10:55 | HHI.PYPN ---
Subjective Remarks Patient seen and examined with counselor and nurse. Chart reviewed. Case discussed with nursing staff reports the patient remains quite intrusive and forgetful. Patient remains extremely intrusive on my examination and requires frequent redirection. He is somewhat behaviorally disorganized, for example hopping on 1 foot for no reason. Affect is childlike. He remains discharge focused. He does indeed seem fairly forgetful, for example telling me multiple times that he has filed a writ of [employer] corpus. Denies side effects from medications. Review of Systems ROS Limitations: Poor Historian Except as stated in HPI: all other systems reviewed are Neg Objective Alert: Yes [place]: Person, Place Mood: Anxious Affect: Other (childlike) Memory Intact: Comment (not formally assessed but seems somewhat forgetful) Hallucinations: Other (Remains int stim) Delusions: No Delusion Type: Other (No isaiah delusions, but I agree he is quite vigilant) Suicidal: Ideation (no SI) Homicidal: Ideation (no HI) Insight/Judgment Poor Remarks No hand tremor, no dystonia, no dyskinesia noted. Thought process perseverative on discharge. Grooming and hygiene fair. Labs Labs reviewed. RPR noted. HIV negative. Vitals/IOs Vital Signs Date Time Temp Pulse Resp B/P Pulse Ox O2 Delivery O2 Flow Rate FiO2 09/04/16 06:05 97.9 92 18 130/59 98 Assessment & Plan Problem List: (1) Schizophrenia ICD Code: F20.9 Assessment & Plan Patient with ongoing internal stimulation, behavioral disorganization suggesting to me an inadequate response to therapy with respect to his psychotic illness. I will titrate his Abilify to 30mg/day. Plan could still be for Maintena if there is evidence of good therapeutic response. Continue CBZ as ordered and check a CBZ level in the morning. Hospitalist treating for syphilis with PCN, and I note that he has consulted Infectious disease. I wonder about the need for possible investigation for neurological involvement and will discuss the matter with ID gis consultant once they have had a chance to evaluate pt. Continue to monitor on the unit in the meantime. Continue other medications and care as ordered. Justification for Cont. Inpt. Medication changes in process. High risk for decompensation in a less restrictive environment. Discharge Planning Counselor informs me that the patient's mother would like to have the patient home tomorrow as she has the day off. Presently, however, patient is not adequately psychiatrically stabilized for discharge. Moreover, I have concerns that the patient is unreliable to follow-up for treatment of syphilis in his present mental state, and workup for this problem is ongoing. For these reasons , it seems most prudent to retain the patient on the unit for further management at this time. Request HC Surrog/Guard Advoc?: Yes Problem Qualifiers (1) Schizophrenia: Qualified Code: F20.3 - Undifferentiated schizophrenia Dominguez Agarwal MD September 04, 2016 10:55
[2016-09-04 17:17] VITALS: BP 122/64; PULSE 95; RESP 18; TEMP 98.4; O2SAT 96
[2016-09-04] MEDS: REMOVE OLD NICODERM (NICOTINE) PATCH T-DERMAL SCH (21:00)
[2016-09-04] MEDS: traZODone HCL 50 MG TAB PO SCH (21:18)
--- NOTE | 2016-09-04 22:11 | HHI.PR ---
Subjective Remarks Patient still with disorganized thought. Patient is asking if he can be discharged very disorganized thought stable vital signs, afebrile Objective Vitals Vital Signs Date Time Temp Pulse Resp B/P Pulse Ox O2 Delivery O2 Flow Rate FiO2 09/04/16 17:17 98.4 95 18 122/64 96 09/04/16 06:05 97.9 92 18 130/59 98 Objective Remarks The patient refused to be examined Medications and IVs Current Medications Medications (Trade) Dose Ordered Sig/Shadi Route Start Time Stop Time Status Last Admin (Tylenol) 650 mg Q4H PRN PO 08/20/16 16:15 08/22/16 22:28 (Milk Of Magnesia Liq) 30 ml DAILY PRN PO 08/20/16 16:15 (Mag-Al Plus Susp Liq) 30 ml Q6H PRN PO 08/20/16 16:15 (Ativan) 1 mg Q6H PRN PO 08/21/16 15:15 09/03/16 20:51 (Ativan Inj) 1 mg Q6H PRN IM 08/21/16 15:15 08/24/16 16:30 (Cogentin) 1 mg Q12HR PRN PO 08/21/16 15:15 08/28/16 09:04 (Cogentin Inj) 1 mg Q12HR PRN IM 08/21/16 15:15 (Haldol Inj) 5 mg Q6H PRN IM 08/23/16 11:15 08/26/16 07:36 (Pill Splitter) 1 ea UNSCH PRN OTHER 08/24/16 14:30 (TEGretol CHEW) 100 mg BID PO 08/26/16 21:00 09/04/16 21:18 (Desyrel) 50 mg HS PO 08/29/16 21:00 09/04/16 21:18 (Habitrol 14 Mg Patch.24 Hr) 1 patch DAILY T-DERMAL 09/01/16 09:00 09/04/16 08:26 Miscellaneous Information 1 HS T-DERMAL 08/31/16 21:00 09/03/16 20:53 (Bicillin L-A Inj) 2,400,000 units Q7D IM 09/03/16 16:00 09/17/16 16:01 09/03/16 16:00 (Abilify) 30 mg DAILY PO 09/05/16 09:00 Urinary Catheter: No Vascular Central Line Catheter: No A/P Problem List: (1) Schizophrenia ICD Code: F20.9 Status: Acute Plan: Treatment as per psychiatry. (2) Bipolar disorder, most recent episode manic ICD Code: F31.10 Status: Acute (3) Syphilis, late latent ICD Code: A52.8 Status: Acute Plan: Syphilis, appeared to be latent syphilis based on the timeline. He was positive about 2 years ago. RPR titer increased 4 folds. Patient or family does not know whether or not he has had any treatment. Patient on Penicillin G IM weekly for 3 weeks. Consult infectious disease. Problem Qualifiers (1) Schizophrenia: Qualified Code: F20.3 - Undifferentiated schizophrenia Austen Barron MD September 04, 2016 22:11
[2016-09-05 05:23] VITALS: BP 124/59; PULSE 90; RESP 18; TEMP 97.4; O2SAT 97
[2016-09-05] MEDS: NICOTINE 14 MG/24 HR PATCH T-DERMAL SCH (08:53)
[2016-09-05] MEDS: ARIPiprazole 10 MG TAB PO SCH (08:54)
--- NOTE | 2016-09-05 09:57 | PD.ID.CON ---
History of Present Illness Service ID Consult Requested By Reason for Consult Evaluation and Mment of Possible Neurosyphylis. Primary Care Physician No Primary Care Physician Diagnoses: History of Present Illness is a 21-year-old male with a known history of bipolar disorder, multiple psychotic episodes and recurrent psychiatric admission brought in under Schreiber act for reportedly stating he would hurt himself. Patient is very impulsive and intrusive. RPR in 2015 was 1: 2 and FTA Abs was positive. RPR this admission is 1:8 and FTA Abs was not ordered. He denies any skin or penile lesions. He denies any change in his vision, or any other neurological symptoms. During that time he admitted to be being sexually active and reports that one of his partners was diagnosed with syphilis 8 months prior. Repeat lab work during this hospitalization show a 4 fold increase of RPR titer to 1:8. ID is consulted for evaluation and Mment of possible neurosyphilis. Review of Systems ROS Limitations: Poor Historian Past Family Social History Allergies: Coded Allergies: No Known Allergies (Unverified , 12/09/15) Past Medical History Multiple admissions for psychiatric issues. Past Surgical History No known surgical history. Reported Medications Reported Meds & Active Scripts Active Quetiapine Fumarate 25 mg (Quetiapine Fumarate) 25 Mg Tab 25 Mg PO HS 15 Days Risperdal (Risperidone) 3 Mg Tab 3 Mg PO HS 30 Days Reported Lorazepam 0.5 Mg Tab 0.5 Mg PO DAILY [place] Carbonate 300 Mg Tab 300 Mg PO QHS Benadryl (Diphenhydramine HCl) 25 Mg Cap 50 Mg PO DAILY Active Ordered Medications Current Medications Medications (Trade) Dose Ordered Sig/Shadi Route Start Time Stop Time Status Last Admin (Tylenol) 650 mg Q4H PRN PO 08/20/16 16:15 08/22/16 22:28 (Milk Of Magnesia Liq) 30 ml DAILY PRN PO 08/20/16 16:15 (Mag-Al Plus Susp Liq) 30 ml Q6H PRN PO 08/20/16 16:15 (Ativan) 1 mg Q6H PRN PO 08/21/16 15:15 09/03/16 20:51 (Ativan Inj) 1 mg Q6H PRN IM 08/21/16 15:15 08/24/16 16:30 (Cogentin) 1 mg Q12HR PRN PO 08/21/16 15:15 08/28/16 09:04 (Cogentin Inj) 1 mg Q12HR PRN IM 08/21/16 15:15 (Haldol Inj) 5 mg Q6H PRN IM 08/23/16 11:15 08/26/16 07:36 (Pill Splitter) 1 ea UNSCH PRN OTHER 08/24/16 14:30 (Desyrel) 50 mg HS PO 08/29/16 21:00 09/04/16 21:18 (Habitrol 14 Mg Patch.24 Hr) 1 patch DAILY T-DERMAL 09/01/16 09:00 09/05/16 08:53 Miscellaneous Information 1 HS T-DERMAL 08/31/16 21:00 09/03/16 20:53 (Bicillin L-A Inj) 2,400,000 units Q7D IM 09/03/16 16:00 09/17/16 16:01 09/03/16 16:00 (Abilify) 30 mg DAILY PO 09/05/16 09:00 09/05/16 08:54 (TEGretol CHEW) 150 mg BID PO 09/05/16 21:00 Family History could not be obtained. Social History Patient denies alcohol or drug use. Physical Exam Vital Signs Vital Signs Date Time Temp Pulse Resp B/P Pulse Ox O2 Delivery O2 Flow Rate FiO2 09/05/16 05:23 97.4 90 18 124/59 97 09/04/16 17:17 98.4 95 18 122/64 96 Physical Exam GENERAL: This is a well-nourished, well-developed patient, in no apparent distress. SKIN: No rashes, ecchymoses or lesions. Cool and dry. HEAD: Atraumatic. Normocephalic. No temporal or scalp tenderness. EYES: Pupils equal round and reactive. Extraocular motions intact. No scleral icterus. No injection or drainage. ENT: Nose without bleeding, purulent drainage or septal hematoma. Throat without erythema, tonsillar hypertrophy or exudate. Uvula midline. Airway patent. NECK: Trachea midline. Supple, nontender, no meningeal signs. CARDIOVASCULAR: RRR. No murmur. RESPIRATORY: Clear to auscultation. Breath sounds equal bilaterally. No wheezes , rales, or rhonchi. GASTROINTESTINAL: Abdomen soft, non-tender, nondistended. MUSCULOSKELETAL: Extremities without clubbing, cyanosis, or edema. NEUROLOGICAL: Awake and alert. Grossly non focal Psych: cooperative IV line sites with no e.o infection. Laboratory Laboratory Tests Test 09/05/16 06:39 Carbamazepine (Tegretol) Level 4.3 Assessment and Plan Assessment and Plan Positive RPR (Prior h/o positive RPR in 2014 with titer 1:2 and FTA-Abs positive ) Reinfection with primary or secondary syphilis. bipolar disorder, multiple psychotic episodes. Recs RPR with FTA-ABS Lupus anticoagulant RA titer Rheumatological conditions can give rise to false positive RPR. d/w , Dr.Dominguez funes.w : it is possible pt may have been treated and reinfected this time. Continue Penicillin as ordered. Seems unlikely to be Neurosyphilis as pt has no neuro, otological or opthalm complaints. to cover for me. I will be OOT from 09/06/16 to 09/11/2016. Brynn Thomason MD September 05, 2016 09:57
--- NOTE | 2016-09-05 13:17 | HHI.PYPN ---
Subjective Remarks Patient seen and examined with counselor and nurse. Chart reviewed. Case discussed with nursing staff who reports that Dr. Thomason with ID has been in to evaluate pt. Patient is noted to be more seclusive by nursing and also less intrusive. On my examination today, patient remains quite discharge focused. Ongoing odd behaviors include hopping at intervals for no evident reason. His thought process is somewhat more organized, but he continues to minimize his psychiatric symptoms in service of obtaining a hasty discharge. He remains internally preoccupied. He denies side effects from medications. I discuss with him the concerns regarding the RPR findings. Review of Systems ROS Limitations: Psychotic, Poor Historian Except as stated in HPI: all other systems reviewed are Neg Objective Alert: Yes [place]: Person, Place Mood: Anxious Affect: Other (remains somewhat childlike.) Memory Intact: Comment (Not formally assessed) Hallucinations: Other (Internally preoccupied, perhaps somewhat less so.) Delusions: No Delusion Type: Other (No delusions) Suicidal: Ideation (no SI) Homicidal: Ideation (no HI) Insight/Judgment Poor Remarks TP perhaps somewhat more linear, perseverative on discharge. Speech somewhat vague in it's content. No motor abnormalities noted. Labs Test 09/05/16 06:39 Carbamazepine (Tegretol) Level 4.3 MCG/ML Labs reviewed. CBZ level is at low end of therapeutic range. Vitals/IOs Vital Signs Date Time Temp Pulse Resp B/P Pulse Ox O2 Delivery O2 Flow Rate FiO2 09/05/16 05:23 97.4 90 18 124/59 97 Assessment & Plan Problem List: (1) Schizophrenia Assessment & Plan: Rule out affective component/schizoaffective disorder. ICD Code: F20.9 Assessment & Plan Perhaps some mild interval improvement with titration of Abilify. I will titrate CBZ to try to bring level higher into the therapeutic range as I do agree with Dr. Carlos with the benefit of further observation that there may be an affective component at play here. Recheck CBZ level after the weekend. Discussed case with Dr. Thomason; she has low index of suspicion for neurosyphilis , recommends FTA-ABS and rheumatologic labs as a first step. Continue to monitor on the inpatient psychiatric unit. Continue other medications and care as ordered. Justification for Cont. Inpt. Medication changes in process. Complicating conditions. High risk for decompensation in a less restrictive environment. Discharge Planning Pending psychiatric stabilization. Request HC Surrog/Guard Advoc?: Yes Problem Qualifiers (1) Schizophrenia: Qualified Code: F20.3 - Undifferentiated schizophrenia Dominguez Agarwal MD September 05, 2016 13:17
[2016-09-05 15:15] VITALS: BP 133/58; PULSE 89; RESP 18; TEMP 97.6; O2SAT 99
[2016-09-05] MEDS: LORazepam 1 MG TAB PO PRN (17:30)
[2016-09-05] MEDS: traZODone HCL 50 MG TAB PO SCH (20:47)
[2016-09-05] MEDS: REMOVE OLD NICODERM (NICOTINE) PATCH T-DERMAL SCH (20:55)
[2016-09-05 22:37] LABS: RHEUMATOID FACTOR TRIGGER LESS THAN 10.0 IU/ML (0.0-14.9)
--- NOTE | 2016-09-05 23:21 | HHI.PR ---
Subjective Remarks Deferred entry - patient seen early at 4 pm patient denies fevers/chills denies cp/sob denies skin lesions Objective Vitals Vital Signs Date Time Temp Pulse Resp B/P Pulse Ox O2 Delivery O2 Flow Rate FiO2 09/05/16 15:15 97.6 89 18 133/58 99 09/05/16 05:23 97.4 90 18 124/59 97 Objective Remarks GENERAL: NAD SKIN: Warm and dry. HEAD: Normocephalic. EYES: No scleral icterus. No injection or drainage. NECK: Supple, trachea midline. No JVD or lymphadenopathy. CARDIOVASCULAR: Regular rate and rhythm without murmurs, gallops, or rubs. RESPIRATORY: Breath sounds equal bilaterally. No accessory muscle use. GASTROINTESTINAL: Abdomen soft, non-tender, nondistended. MUSCULOSKELETAL: No cyanosis, or edema. BACK: Nontender without obvious deformity. No CVA tenderness. Medications and IVs Current Medications Medications (Trade) Dose Ordered Sig/Shadi Route Start Time Stop Time Status Last Admin (Tylenol) 650 mg Q4H PRN PO 08/20/16 16:15 08/22/16 22:28 (Milk Of Magnesia Liq) 30 ml DAILY PRN PO 08/20/16 16:15 (Mag-Al Plus Susp Liq) 30 ml Q6H PRN PO 08/20/16 16:15 (Ativan) 1 mg Q6H PRN PO 08/21/16 15:15 09/05/16 17:30 (Ativan Inj) 1 mg Q6H PRN IM 08/21/16 15:15 08/24/16 16:30 (Cogentin) 1 mg Q12HR PRN PO 08/21/16 15:15 08/28/16 09:04 (Cogentin Inj) 1 mg Q12HR PRN IM 08/21/16 15:15 (Haldol Inj) 5 mg Q6H PRN IM 08/23/16 11:15 08/26/16 07:36 (Pill Splitter) 1 ea UNSCH PRN OTHER 08/24/16 14:30 (Desyrel) 50 mg HS PO 08/29/16 21:00 09/05/16 20:47 (Habitrol 14 Mg Patch.24 Hr) 1 patch DAILY T-DERMAL 09/01/16 09:00 09/05/16 08:53 Miscellaneous Information 1 HS T-DERMAL 08/31/16 21:00 09/03/16 20:53 (Bicillin L-A Inj) 2,400,000 units Q7D IM 09/03/16 16:00 09/17/16 16:01 09/03/16 16:00 (Abilify) 30 mg DAILY PO 09/05/16 09:00 09/05/16 08:54 (TEGretol CHEW) 150 mg BID PO 09/05/16 21:00 09/05/16 20:47 A/P Problem List: (1) Schizophrenia ICD Code: F20.9 Status: Acute Plan: (2) Bipolar disorder, most recent episode manic ICD Code: F31.10 Status: Acute (3) Syphilis, late latent ICD Code: A52.8 Status: Acute Assessment and Plan Management of schizophrenia as per psychiatry. Discussed case with Dr Thomason - Low suspicion for Neurosyphillis since patient is young and HIV negative. RPR with FTA ABS and rheumatological tests ordered as rheumatological conditions can give false positives RPR. Will follow recommendations. Problem Qualifiers (1) Schizophrenia: Qualified Code: F20.3 - Undifferentiated schizophrenia Austen Barron MD September 05, 2016 23:21
[2016-09-06 06:01] VITALS: BP 104/57; PULSE 87; RESP 17; TEMP 97.5; O2SAT 99
[2016-09-06] MEDS: NICOTINE 14 MG/24 HR PATCH T-DERMAL SCH (09:00)
[2016-09-06] MEDS: ARIPiprazole 10 MG TAB PO SCH (09:45)
--- NOTE | 2016-09-06 12:08 | HHI.PYPN ---
Subjective Remarks Patient seen and examined with counselor and nurse. Chart reviewed. Case discussed with nursing staff. On my examination today, patient remains fairly discharge focused. Thought content fairly vague. No bizarre behaviors noted. There seems to be some degree of ongoing internal stimulation, although patient continues to minimize psychiatric symptoms. No side effects from medications. No physical complaints. Review of Systems ROS Limitations: Poor Historian Except as stated in HPI: all other systems reviewed are Neg Objective Alert: Yes [place]: Person, Place Mood: Calm Affect: Blunted Memory Intact: Comment (Not formally assessed) Hallucinations: Other (Perhaps mildly int stim) Delusions: No Delusion Type: Other (No isaiah delusions) Suicidal: Ideation (No SI) Homicidal: Ideation (No HI) Insight/Judgment Poor Remarks No abnormal motor movements noted. TP perhaps somewhat more organized, although TC remains fairly vague. Labs Test 09/05/16 19:29 Rheumatoid Factor Screen NEGATIVE Rheumatoid Factor Titer IU/ML Rapid Plasma Reagin Titer 1:16 Rapid Plasma Reagin REACTIVE Labs reviewed Vitals/IOs Vital Signs Date Time Temp Pulse Resp B/P Pulse Ox O2 Delivery O2 Flow Rate FiO2 09/06/16 06:01 97.5 87 17 104/57 99 Assessment & Plan Problem List: (1) Schizophrenia ICD Code: F20.9 Assessment & Plan Inadequate response with respect to psychosis on maximal dose of Abilify, although affective component does seem to be stabilizing with carbamazepine. I will augment the Abilify with a typical, Haldol 2mg BID. Could consider cross- taper to Haldol or utilize this as a temporary augmentation strategy with plans for return to monotherapy with Abilify during maintenance phase of illness. ID and hospitalist input noted and appreciated. Continue to monitor on the inpatient unit. Continue other medications and care as ordered. Justification for Cont. Inpt. Impairment in reality construction. Medication changes in process. High risk for decompensation in a less restrictive environment. Discharge Planning Pending psychiatric stabilization. Hopefully, patient will be stable for discharge sometime next week. Request HC Surrog/Guard Advoc?: Yes Problem Qualifiers (1) Schizophrenia: Qualified Code: F20.3 - Undifferentiated schizophrenia Dominguez Agarwal MD September 06, 2016 12:07
[2016-09-06 15:30] VITALS: BP 124/63; PULSE 91; RESP 18; TEMP 97.9; O2SAT 98
[2016-09-06] MEDS: LORazepam 1 MG TAB PO PRN (18:26)
[2016-09-06] MEDS: HALOPERIDOL 2 MG TAB PO SCH (20:55)
[2016-09-06] MEDS: traZODone HCL 50 MG TAB PO SCH (20:55)
[2016-09-06] MEDS: REMOVE OLD NICODERM (NICOTINE) PATCH T-DERMAL SCH (21:00)
[2016-09-07 06:10] VITALS: BP 108/62; PULSE 80; RESP 16; TEMP 98.4; O2SAT 98
[2016-09-07] MEDS: NICOTINE 14 MG/24 HR PATCH T-DERMAL SCH (09:26)
[2016-09-07] MEDS: ARIPiprazole 10 MG TAB PO SCH (09:26)
[2016-09-07] MEDS: HALOPERIDOL 2 MG TAB PO SCH ×2 (09:27→21:16)
--- NOTE | 2016-09-07 14:20 | HHI.PYPN ---
Subjective Remarks Pt seen and discussed with staff. He exhibits disorganized behaviors and staff reports that pt is easily agitated at times. He is intrusive and engages in bizarre behaviors. No medication side effects. No SI/HI. Objective Alert: Yes [place]: Person, Place Mood: Anxious Affect: Labile Memory Intact: Comment (intact) Hallucinations: Other (internal stimulation) Delusions: No Delusion Type: Other (No isaiah delusions) Suicidal: Ideation (No SI) Homicidal: Ideation (No HI) Insight/Judgment poor Vitals/IOs Vital Signs Date Time Temp Pulse Resp B/P Pulse Ox O2 Delivery O2 Flow Rate FiO2 09/07/16 06:10 98.4 80 16 108/62 98 Assessment & Plan Problem List: (1) Schizophrenia ICD Code: F20.9 Assessment & Plan Continue current tx plan. Estimated LOS: days Justification for Cont. Inpt. impairments in safety and self care and social functioning Request HC Surrog/Guard Advoc?: Yes Problem Qualifiers (1) Schizophrenia: Qualified Code: F20.3 - Undifferentiated schizophrenia Rosemarie Doshi MD September 07, 2016 14:19
[2016-09-07 17:16] VITALS: BP 117/62; PULSE 76; RESP 18; TEMP 97.4; O2SAT 99
[2016-09-07] MEDS: REMOVE OLD NICODERM (NICOTINE) PATCH T-DERMAL SCH (21:00)
[2016-09-07] MEDS: traZODone HCL 50 MG TAB PO SCH (21:16)
[2016-09-08 06:37] VITALS: BP 126/57; PULSE 80; RESP 17; TEMP 98; O2SAT 98
[2016-09-08] MEDS: NICOTINE 14 MG/24 HR PATCH T-DERMAL SCH (09:00)
[2016-09-08] MEDS: LORazepam 1 MG TAB PO PRN ×2 (10:32→18:24)
[2016-09-08] MEDS: ARIPiprazole 10 MG TAB PO SCH (10:33)
[2016-09-08] MEDS: HALOPERIDOL 2 MG TAB PO SCH ×2 (10:33→20:46)
--- NOTE | 2016-09-08 11:29 | HHI.PYPN ---
Subjective Remarks Pt seen and discussed with staff. He remains disorganized and bizarre but has not been agitated today. He is compliant wi medications. No side effects. No SI/HI. Objective Alert: Yes [place]: Person, Place Mood: Calm Affect: Restricted Memory Intact: Comment (intact) Hallucinations: Other (internal stimulation) Delusions: No Delusion Type: Other (No isaiah delusions) Suicidal: Ideation (No SI) Homicidal: Ideation (No HI) Insight/Judgment poor Vitals/IOs Vital Signs Date Time Temp Pulse Resp B/P Pulse Ox O2 Delivery O2 Flow Rate FiO2 09/08/16 06:37 98.0 80 17 126/57 98 Assessment & Plan Problem List: (1) Schizophrenia ICD Code: F20.9 Assessment & Plan Continue current tx plan. Estimated LOS: days Justification for Cont. Inpt. impairments in reality construction and self care Request HC Surrog/Guard Advoc?: Yes Problem Qualifiers (1) Schizophrenia: Qualified Code: F20.3 - Undifferentiated schizophrenia Rosemarie Doshi MD September 08, 2016 11:29
--- NOTE | 2016-09-08 11:54 | HHI.PR ---
Subjective Remarks patient still disorganized and bizarre denies cp/sob denies fevers/chills stable vital signs Objective Vitals Vital Signs Date Time Temp Pulse Resp B/P Pulse Ox O2 Delivery O2 Flow Rate FiO2 09/08/16 06:37 98.0 80 17 126/57 98 09/07/16 17:16 97.4 76 18 117/62 99 Objective Remarks GENERAL: NAD SKIN: Warm and dry. HEAD: Normocephalic. EYES: No scleral icterus. No injection or drainage. NECK: Supple, trachea midline. No JVD or lymphadenopathy. CARDIOVASCULAR: Regular rate and rhythm without murmurs, gallops, or rubs. RESPIRATORY: Breath sounds equal bilaterally. No accessory muscle use. GASTROINTESTINAL: Abdomen soft, non-tender, nondistended. MUSCULOSKELETAL: No cyanosis, or edema. BACK: Nontender without obvious deformity. No CVA tenderness. Medications and IVs Current Medications Medications (Trade) Dose Ordered Sig/Shadi Route Start Time Stop Time Status Last Admin (Tylenol) 650 mg Q4H PRN PO 08/20/16 16:15 08/22/16 22:28 (Milk Of Magnesia Liq) 30 ml DAILY PRN PO 08/20/16 16:15 (Mag-Al Plus Susp Liq) 30 ml Q6H PRN PO 08/20/16 16:15 (Ativan) 1 mg Q6H PRN PO 08/21/16 15:15 09/08/16 10:32 (Ativan Inj) 1 mg Q6H PRN IM 08/21/16 15:15 08/24/16 16:30 (Cogentin) 1 mg Q12HR PRN PO 08/21/16 15:15 08/28/16 09:04 (Cogentin Inj) 1 mg Q12HR PRN IM 08/21/16 15:15 (Haldol Inj) 5 mg Q6H PRN IM 08/23/16 11:15 08/26/16 07:36 (Pill Splitter) 1 ea UNSCH PRN OTHER 08/24/16 14:30 (Desyrel) 50 mg HS PO 08/29/16 21:00 09/07/16 21:16 (Habitrol 14 Mg Patch.24 Hr) 1 patch DAILY T-DERMAL 09/01/16 09:00 09/07/16 09:26 Miscellaneous Information 1 HS T-DERMAL 08/31/16 21:00 09/03/16 20:53 (Bicillin L-A Inj) 2,400,000 units Q7D IM 09/03/16 16:00 09/17/16 16:01 09/03/16 16:00 (Abilify) 30 mg DAILY PO 09/05/16 09:00 09/08/16 10:33 (TEGretol CHEW) 150 mg BID PO 09/05/16 21:00 09/08/16 10:32 (Haldol) 2 mg BID PO 09/06/16 21:00 09/08/16 10:33 Urinary Catheter: No Vascular Central Line Catheter: No A/P Problem List: (1) Schizophrenia ICD Code: F20.9 Status: Acute (2) Bipolar disorder, most recent episode manic ICD Code: F31.10 Status: Acute (3) Syphilis, late latent ICD Code: A52.8 Status: Acute Assessment and Plan Management of schizophrenia as per psychiatry. On Penicillin G IM treatment for latent TB RPR titer doubled from 1:8 to 1:[address] Winslow (covering ID physician) - Will repeat RPR if titer still rising then will need to r/o neurosyphillis. Patient will need to stay hospitalized until he finishes treatment - doubt patient will follow up and complete treatment. Problem Qualifiers (1) Schizophrenia: Qualified Code: F20.3 - Undifferentiated schizophrenia Austen Barron MD September 08, 2016 11:54
[2016-09-08 18:16] VITALS: BP 127/60; PULSE 113; RESP 19; TEMP 97.9; O2SAT 97
[2016-09-08] MEDS: traZODone HCL 50 MG TAB PO SCH (20:46)
[2016-09-08] MEDS: REMOVE OLD NICODERM (NICOTINE) PATCH T-DERMAL SCH (20:48)
[2016-09-09 05:45] VITALS: BP 102/53; PULSE 76; RESP 18; TEMP 97.9; O2SAT 96
[2016-09-09] MEDS: HALOPERIDOL 2 MG TAB PO SCH (08:34)
[2016-09-09] MEDS: ARIPiprazole 10 MG TAB PO SCH (08:35)
[2016-09-09] MEDS: NICOTINE 14 MG/24 HR PATCH T-DERMAL SCH (08:36)
--- NOTE | 2016-09-09 10:07 | HHI.PYPN ---
Subjective Remarks Patient seen and examined with counselor and nurse. Chart reviewed. Case discussed with nursing staff who reports that the patient still remains somewhat behaviorally disorganized but is less intrusive. Nursing staff also notes that the patient was playing with a metal grate in his room and pulled it off, although it is not suspected that he did this with malicious intent. On my examination today, patient is distinctly interpersonally odd and aloof. When the team enters his room to speak with him, he slides past and heads into the hallway. When we go into the hallway, he returns to his room. He is less fixated on discharge (although he does ask to file another writ). He remains internally preoccupied. No side effects from medications. No physical complaints. Review of Systems ROS Limitations: Psychotic, Poor Historian Except as stated in HPI: all other systems reviewed are Neg Objective Alert: Yes [place]: Person, Place Mood: Calm Affect: Blunted Memory Intact: Comment (Not formally assessed) Hallucinations: Other (Remains int stim) Delusions: No Delusion Type: Other (No delusions) Suicidal: Ideation (No SI) Homicidal: Ideation (No HI) Insight/Judgment Poor Remarks No motor abnormalities noted. Somewhat hypoverbal. Grooming and hygiene fair. Labs Test 09/09/16 07:13 Carbamazepine (Tegretol) Level 6.4 MCG/ML Labs reviewed. Tegretol level increased. Vitals/IOs Vital Signs Date Time Temp Pulse Resp B/P Pulse Ox O2 Delivery O2 Flow Rate FiO2 09/09/16 05:45 97.9 76 18 102/53 96 Assessment & Plan Problem List: (1) Schizophrenia ICD Code: F20.9 Assessment & Plan Titrate Haldol to 5 mg twice daily to target ongoing behavioral disorganization in the setting of his psychotic illness. Continue carbamazepine as ordered. Ongoing hospitalist and infectious disease input noted and appreciated. I do see that the hospitalist is recommending ongoing hospitalization until treatment for his syphilis is completed, and I she had a hospitalist's concern that the patient is in his present state unreliable to do this on his own in an ambulatory setting. Continue to monitor on the inpatient unit. Continue other medications and care as ordered. Justification for Cont. Inpt. Medication changes in process. High risk for decompensation in a less restrictive environment. Discharge Planning Pending psychiatric stabilization. Request HC Surrog/Guard Advoc?: Yes Problem Qualifiers (1) Schizophrenia: Qualified Code: F20.3 - Undifferentiated schizophrenia Dominguez Agarwal MD September 09, 2016 10:07
--- NOTE | 2016-09-09 14:09 | HHI.PR ---
Subjective Remarks denies headache, double vision denies blurry vision afebrile denies fevers/chills Objective Vitals Vital Signs Date Time Temp Pulse Resp B/P Pulse Ox O2 Delivery O2 Flow Rate FiO2 09/09/16 05:45 97.9 76 18 102/53 96 09/08/16 18:16 97.9 113 19 127/60 97 Objective Remarks GENERAL: NAD SKIN: Warm and dry. HEAD: Normocephalic. EYES: No scleral icterus. No injection or drainage. NECK: Supple, trachea midline. No JVD or lymphadenopathy. CARDIOVASCULAR: Regular rate and rhythm without murmurs, gallops, or rubs. RESPIRATORY: Breath sounds equal bilaterally. No accessory muscle use. GASTROINTESTINAL: Abdomen soft, non-tender, nondistended. MUSCULOSKELETAL: No cyanosis, or edema. BACK: Nontender without obvious deformity. No CVA tenderness. Medications and IVs Current Medications Medications (Trade) Dose Ordered Sig/Shadi Route Start Time Stop Time Status Last Admin (Tylenol) 650 mg Q4H PRN PO 08/20/16 16:15 08/22/16 22:28 (Milk Of Magnesia Liq) 30 ml DAILY PRN PO 08/20/16 16:15 (Mag-Al Plus Susp Liq) 30 ml Q6H PRN PO 08/20/16 16:15 09/08/16 20:46 (Ativan) 1 mg Q6H PRN PO 08/21/16 15:15 09/08/16 18:24 (Ativan Inj) 1 mg Q6H PRN IM 08/21/16 15:15 08/24/16 16:30 (Cogentin) 1 mg Q12HR PRN PO 08/21/16 15:15 08/28/16 09:04 (Cogentin Inj) 1 mg Q12HR PRN IM 08/21/16 15:15 (Haldol Inj) 5 mg Q6H PRN IM 08/23/16 11:15 08/26/16 07:36 (Pill Splitter) 1 ea UNSCH PRN OTHER 08/24/16 14:30 (Desyrel) 50 mg HS PO 08/29/16 21:00 09/08/16 20:46 (Habitrol 14 Mg Patch.24 Hr) 1 patch DAILY T-DERMAL 09/01/16 09:00 09/09/16 08:36 Miscellaneous Information 1 HS T-DERMAL 08/31/16 21:00 09/03/16 20:53 (Bicillin L-A Inj) 2,400,000 units Q7D IM 09/03/16 16:00 09/17/16 16:01 09/03/16 16:00 (Abilify) 30 mg DAILY PO 09/05/16 09:00 09/09/16 08:35 (TEGretol CHEW) 150 mg BID PO 09/05/16 21:00 09/09/16 08:36 (Haldol) 2 mg BID PO 09/06/16 21:00 09/09/16 08:34 A/P Problem List: (1) Schizophrenia ICD Code: F20.9 Status: Acute (2) Bipolar disorder, most recent episode manic ICD Code: F31.10 Status: Acute (3) Syphilis, late latent ICD Code: A52.8 Status: Acute Assessment and Plan Management of schizophrenia as per psychiatry. 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 Patient will need to stay hospitalized until he finishes treatment - doubt patient will follow up and complete treatment. Problem Qualifiers (1) Schizophrenia: Qualified Code: F20.3 - Undifferentiated schizophrenia Austen Barron MD September 09, 2016 14:09
[2016-09-09 17:17] VITALS: BP 123/57; PULSE 74; RESP 18; TEMP 98.6; O2SAT 97
[2016-09-09] MEDS: HALOPERIDOL 5 MG TAB PO SCH (20:32)
[2016-09-09] MEDS: traZODone HCL 50 MG TAB PO SCH (20:33)
[2016-09-09] MEDS: REMOVE OLD NICODERM (NICOTINE) PATCH T-DERMAL SCH (20:33)
[2016-09-10 06:11] VITALS: BP 109/57; PULSE 82; RESP 18; TEMP 97.6; O2SAT 98
[2016-09-10] MEDS: ARIPiprazole 10 MG TAB PO SCH (08:57)
[2016-09-10] MEDS: HALOPERIDOL 5 MG TAB PO SCH ×2 (08:58→20:55)
[2016-09-10] MEDS: NICOTINE 14 MG/24 HR PATCH T-DERMAL SCH (08:58)
[2016-09-10 11:10] LABS: RAPID PLASMA REAGIN SCREEN REACTIVE (NON-REACTVE)
--- NOTE | 2016-09-10 12:15 | HHI.PYPN ---
Subjective Remarks Patient seen and examined with counselor. Chart reviewed. Case discussed with treatment team. Per nursing staff, the patient is more organized in speaking more normally. He is somewhat more seclusive to room I am told. Occupational therapist reports that the patient continues to struggle to tolerate a full group. On my examination today, the patient does indeed present as somewhat more organized. He is calmer and less fidgety. Thought content seems somewhat vague, but he is able to deny AVH or other psychotic symptoms. No SI/HI. No side effects from medications. No physical complaints. Review of Systems ROS Limitations: Poor Historian Except as stated in HPI: all other systems reviewed are Neg Objective Alert: Yes [place]: Person, Place Mood: Calm Affect: Blunted Memory Intact: Comment (Not formally assessed) Hallucinations: Other (Denies AVH) Delusions: No Delusion Type: Other (No delusions) Suicidal: Ideation (No SI) Homicidal: Ideation (No HI) Insight/Judgment Poor Remarks No abnormal motor movements noted. Labs Labs reviewed. RPR titer is 1:8 Vitals/IOs Vital Signs Date Time Temp Pulse Resp B/P Pulse Ox O2 Delivery O2 Flow Rate FiO2 09/10/16 06:11 97.6 82 18 109/57 98 Assessment & Plan Problem List: (1) Schizophrenia ICD Code: F20.9 Assessment & Plan Patient does seem somewhat improved from a psychiatric standpoint today. I will continue his Haldol and Abilify as ordered. Continue CBZ as ordered. Continue to monitor on inpatient unit. D/w Dr. Laboy, and pt will likely need to remain on unit through beginning of next week to complete tx for syphilis. Continue other medications and care as ordered. Justification for Cont. Inpt. High risk for decompensation in a less restrictive environment Discharge Planning Anticipate discharge beginning or middle of next week. Request HC Surrog/Guard Advoc?: Yes Problem Qualifiers (1) Schizophrenia: Qualified Code: F20.3 - Undifferentiated schizophrenia Dominguez Agarwal MD September 10, 2016 12:15
--- NOTE | 2016-09-10 15:44 | PD.TTN ---
Present for Treatment Team Treatment Team Staff: Provider (Dr. Agarwal), Nurse (Shraddha Bardales RN), Psych Therapist (FRANCES Jordan), Occupational Therapist (Fausto Dumas OT) Patient Problems 1. Discharge planning 2. Medication compliance 3. Knowledge deficit 4. Lack of coping skills Progress Toward Goals Provider Input: Pt is showing improvement on medication regiment and it will continue to be evaluated prior to discharge. Nurse Input: Pt appears more coherent, less intrusive, more easily redirectable, more withdrawn and appropriate. He is compliant with medication regiment and expectations of the unit. No behavioral outburts or problems from pt on unit. Psych Therapist Input: Pt continues to appear somewhat disorganized and discharge focused yet he does show increased use of coping skills to moderate behavior. Pt presents with improving insight into condition and need for care. Pt appears cooperative with idea of outpatient follow up services and appears more willing to continue medication after discharge than previously. Occupational Therapist Input: Pt is not attending group as he appears unable to tolerate group. Documentation Scribe: FRANCES Jordan Date Resolved: September 10, 2016 Antwan Singh September 10, 2016 15:44
[2016-09-10] MEDS: PENICILLIN G BENZATHINE 2,400,000 UNITS/4 ML SYRINGE IM SCH (16:00)
[2016-09-10 18:32] VITALS: BP 115/59; PULSE 74; RESP 18; TEMP 98.1; O2SAT 99
--- NOTE | 2016-09-10 18:58 | HHI.PR ---
Subjective Remarks Patient is asking when he can be discharged denies cp/sob denies fevers/chills denies headache, double vision. stable vital signs Objective Vitals Vital Signs Date Time Temp Pulse Resp B/P Pulse Ox O2 Delivery O2 Flow Rate FiO2 09/10/16 18:32 98.1 74 18 115/59 99 09/10/16 06:11 97.6 82 18 109/57 98 Objective Remarks GENERAL: NAD SKIN: Warm and dry. HEAD: Normocephalic. EYES: No scleral icterus. No injection or drainage. NECK: Supple, trachea midline. No JVD or lymphadenopathy. CARDIOVASCULAR: Regular rate and rhythm without murmurs, gallops, or rubs. RESPIRATORY: Breath sounds equal bilaterally. No accessory muscle use. GASTROINTESTINAL: Abdomen soft, non-tender, nondistended. MUSCULOSKELETAL: No cyanosis, or edema. BACK: Nontender without obvious deformity. No CVA tenderness. Medications and IVs Current Medications Medications (Trade) Dose Ordered Sig/Shadi Route Start Time Stop Time Status Last Admin (Tylenol) 650 mg Q4H PRN PO 08/20/16 16:15 08/22/16 22:28 (Milk Of Magnesia Liq) 30 ml DAILY PRN PO 08/20/16 16:15 (Mag-Al Plus Susp Liq) 30 ml Q6H PRN PO 08/20/16 16:15 09/08/16 20:46 (Ativan) 1 mg Q6H PRN PO 08/21/16 15:15 09/08/16 18:24 (Ativan Inj) 1 mg Q6H PRN IM 08/21/16 15:15 08/24/16 16:30 (Cogentin) 1 mg Q12HR PRN PO 08/21/16 15:15 08/28/16 09:04 (Cogentin Inj) 1 mg Q12HR PRN IM 08/21/16 15:15 (Haldol Inj) 5 mg Q6H PRN IM 08/23/16 11:15 08/26/16 07:36 (Pill Splitter) 1 ea UNSCH PRN OTHER 08/24/16 14:30 (Desyrel) 50 mg HS PO 08/29/16 21:00 09/09/16 20:33 (Habitrol 14 Mg Patch.24 Hr) 1 patch DAILY T-DERMAL 09/01/16 09:00 09/09/16 08:36 Miscellaneous Information 1 HS T-DERMAL 08/31/16 21:00 09/03/16 20:53 (Bicillin L-A Inj) 2,400,000 units Q7D IM 09/03/16 16:00 09/17/16 16:01 09/10/16 16:00 (Abilify) 30 mg DAILY PO 09/05/16 09:00 09/10/16 08:57 (TEGretol CHEW) 150 mg BID PO 09/05/16 21:00 09/10/16 08:58 (Haldol) 5 mg BID PO 09/09/16 21:00 09/10/16 08:58 A/P Problem List: (1) Schizophrenia ICD Code: F20.9 Status: Acute (2) Bipolar disorder, most recent episode manic ICD Code: F31.10 Status: Acute (3) Syphilis, late latent ICD Code: A52.8 Status: Acute Assessment and Plan Management of schizophrenia as per psychiatry. 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 Patient will need to complete treatment for latent TB. Patient will need to stay hospitalized until he finishes treatment - doubt patient will follow up and complete treatment. Problem Qualifiers (1) Schizophrenia: Qualified Code: F20.3 - Undifferentiated schizophrenia Austen Barron MD September 10, 2016 18:58
[2016-09-10] MEDS: traZODone HCL 50 MG TAB PO SCH (20:55)
[2016-09-10] MEDS: REMOVE OLD NICODERM (NICOTINE) PATCH T-DERMAL SCH (21:00)
[2016-09-10] MEDS: LORazepam 1 MG TAB PO PRN (23:42)
[2016-09-11 06:10] VITALS: BP 140/72; PULSE 87; RESP 17; TEMP 97.4; O2SAT 95
[2016-09-11] MEDS: ARIPiprazole 10 MG TAB PO SCH (08:48)
[2016-09-11] MEDS: NICOTINE 14 MG/24 HR PATCH T-DERMAL SCH (08:48)
[2016-09-11] MEDS: HALOPERIDOL 5 MG TAB PO SCH ×2 (08:48→21:01)
--- NOTE | 2016-09-11 12:30 | HHI.PYPN ---
Subjective Remarks Patient seen and examined with counselor and nurse. Chart reviewed. Case discussed with nursing staff. On my examination today, the patient is somewhat intrusive in service of his discharge focus. He denies audiovisual hallucinations. Affect somewhat childlike. No physical complaints. No side effects from medications. Prefers to defer initiation of long-acting injectable antipsychotic until day of discharge. Review of Systems ROS Limitations: Poor Historian Except as stated in HPI: all other systems reviewed are Neg Objective Alert: Yes [place]: Person, Place Mood: Calm Affect: Blunted Memory Intact: Comment (Not formally assessed) Hallucinations: Other (no AVH) Delusions: No Delusion Type: Other (no delusional material) Suicidal: Ideation (No SI) Homicidal: Ideation (No HI) Insight/Judgment Poor Remarks Thought process somewhat perseverative on discharge. No motor abnormalities noted. Labs Labs reviewed. Vitals/IOs Vital Signs Date Time Temp Pulse Resp B/P Pulse Ox O2 Delivery O2 Flow Rate FiO2 09/11/16 06:10 97.4 87 17 140/72 95 Assessment & Plan Problem List: (1) Schizophrenia ICD Code: F20.9 Assessment & Plan Continue Haldol and Abilify as ordered. Plan to administer long-acting injectable Abilify on day of discharge per patient preference, although I have cautioned him that this will not allow us to observe him for any ill effects from the long-acting injectable. Continue carbamazepine as ordered. Continue to monitor on the inpatient unit. Continue other medications and care as ordered. Hospitalist input appreciated. Justification for Cont. Inpt. Complicating conditions, syphilis. High risk for decompensation in a less restrictive environment. Discharge Planning Anticipate discharge beginning of next week. Request HC Surrog/Guard Advoc?: Yes Problem Qualifiers (1) Schizophrenia: Qualified Code: F20.3 - Undifferentiated schizophrenia Dominguez Agarwal MD September 11, 2016 12:30
[2016-09-11] MEDS: LORazepam 1 MG TAB PO PRN (13:05)
[2016-09-11 18:15] VITALS: BP 138/70; PULSE 90; RESP 17; TEMP 98.1; O2SAT 98
--- NOTE | 2016-09-11 19:26 | HHI.PR ---
Subjective Remarks Patient denies fevers, chills denies headache, dizziness vitals stable Objective Vitals Vital Signs Date Time Temp Pulse Resp B/P Pulse Ox O2 Delivery O2 Flow Rate FiO2 09/11/16 18:15 98.1 90 17 138/70 98 09/11/16 06:10 97.4 87 17 140/72 95 Objective Remarks GENERAL: NAD SKIN: Warm and dry. HEAD: Normocephalic. EYES: No scleral icterus. No injection or drainage. NECK: Supple, trachea midline. No JVD or lymphadenopathy. CARDIOVASCULAR: Regular rate and rhythm without murmurs, gallops, or rubs. RESPIRATORY: Breath sounds equal bilaterally. No accessory muscle use. GASTROINTESTINAL: Abdomen soft, non-tender, nondistended. MUSCULOSKELETAL: No cyanosis, or edema. BACK: Nontender without obvious deformity. No CVA tenderness. Medications and IVs Current Medications Medications (Trade) Dose Ordered Sig/Shadi Route Start Time Stop Time Status Last Admin (Tylenol) 650 mg Q4H PRN PO 08/20/16 16:15 08/22/16 22:28 (Milk Of Magnesia Liq) 30 ml DAILY PRN PO 08/20/16 16:15 (Mag-Al Plus Susp Liq) 30 ml Q6H PRN PO 08/20/16 16:15 09/08/16 20:46 (Ativan) 1 mg Q6H PRN PO 08/21/16 15:15 09/11/16 13:05 (Ativan Inj) 1 mg Q6H PRN IM 08/21/16 15:15 08/24/16 16:30 (Cogentin) 1 mg Q12HR PRN PO 08/21/16 15:15 08/28/16 09:04 (Cogentin Inj) 1 mg Q12HR PRN IM 08/21/16 15:15 (Haldol Inj) 5 mg Q6H PRN IM 08/23/16 11:15 08/26/16 07:36 (Pill Splitter) 1 ea UNSCH PRN OTHER 08/24/16 14:30 (Desyrel) 50 mg HS PO 08/29/16 21:00 09/10/16 20:55 (Habitrol 14 Mg Patch.24 Hr) 1 patch DAILY T-DERMAL 09/01/16 09:00 09/09/16 08:36 Miscellaneous Information 1 HS T-DERMAL 08/31/16 21:00 09/03/16 20:53 (Bicillin L-A Inj) 2,400,000 units Q7D IM 09/03/16 16:00 09/17/16 16:01 09/10/16 16:00 (Abilify) 30 mg DAILY PO 09/05/16 09:00 09/11/16 08:48 (TEGretol CHEW) 150 mg BID PO 09/05/16 21:00 09/11/16 08:48 (Haldol) 5 mg BID PO 09/09/16 21:00 09/11/16 08:48 A/P Problem List: (1) Schizophrenia ICD Code: F20.9 Status: Acute (2) Bipolar disorder, most recent episode manic ICD Code: F31.10 Status: Acute (3) Syphilis, late latent ICD Code: A52.8 Status: Acute Assessment and Plan Management of schizophrenia as per psychiatry. 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 Patient will need to complete treatment for latent syphilis. Patient will need to stay hospitalized until he finishes treatment - doubt patient will follow up and complete treatment. Patient will be able to be discharged after he finishes treatment if cleared by psychiatry. will need to have appropiate follow up as outpatient. I will sign off, please call with questions. Problem Qualifiers (1) Schizophrenia: Qualified Code: F20.3 - Undifferentiated schizophrenia Austen Barron MD September 11, 2016 19:26
[2016-09-11 19:52] LABS: THROMBIN TIME FOR LA ND sec (13-19)
[2016-09-11] MEDS: REMOVE OLD NICODERM (NICOTINE) PATCH T-DERMAL SCH (21:00)
[2016-09-11] MEDS: traZODone HCL 50 MG TAB PO SCH (21:01)
[2016-09-12 05:43] VITALS: BP_SYST 113; PULSE 91; RESP 18; TEMP 97.5; O2SAT 98
[2016-09-12] MEDS: HALOPERIDOL 5 MG TAB PO SCH ×2 (08:28→20:46)
[2016-09-12] MEDS: ARIPiprazole 10 MG TAB PO SCH (08:28)
[2016-09-12] MEDS: NICOTINE 14 MG/24 HR PATCH T-DERMAL SCH (08:32)
--- NOTE | 2016-09-12 13:21 | HHI.PYPN ---
Subjective Remarks Patient seen and examined with nurse. Chart reviewed. Case discussed with nursing staff. No behavioral issues noted. On my examination today, the patient remained somewhat discharge focused. He requires frequent reassurance regarding the discharge plan. No isaiah psychotic symptoms. No SI or HI. No side effects from medications. No physical complaints. Review of Systems ROS Limitations: Poor Historian Except as stated in HPI: all other systems reviewed are Neg Objective Alert: Yes [place]: Person, Place Mood: Calm (remains fairly calm) Affect: Blunted Memory Intact: Comment (Forgetful) Hallucinations: Other (no AVH) Delusions: No Delusion Type: Other (No delusions) Suicidal: Ideation (No SI) Homicidal: Ideation (No HI) Insight/Judgment Poor Remarks No abnormal motor movements noted. Thought process somewhat scattered but not frankly disorganized. Grooming and hygiene fair. Labs Labs reviewed. Vitals/IOs Vital Signs Date Time Temp Pulse Resp B/P Pulse Ox O2 Delivery O2 Flow Rate FiO2 09/12/16 05:43 97.5 91 18 113/ 98 Assessment & Plan Problem List: (1) Schizophrenia ICD Code: F20.9 Assessment & Plan Continue Abilify 30mg daily; plan for Maintena. Continue Haldol as ordered. Ongoing hospitalist input appreciated. Continue to monitor on the inpatient unit. Continue other medications and care as ordered. Justification for Cont. Inpt. High risk for decompensation in a less restrictive environment. Discharge Planning Anticipate discharge beginning of next week. Request HC Surrog/Guard Advoc?: Yes Problem Qualifiers (1) Schizophrenia: Qualified Code: F20.3 - Undifferentiated schizophrenia Dominguez Agarwal MD Sep 12, 2016 13:21
[2016-09-12 15:32] VITALS: BP 112/76; PULSE 89; RESP 18; TEMP 97.9; O2SAT 96
[2016-09-12] MEDS: traZODone HCL 50 MG TAB PO SCH (20:45)
[2016-09-12] MEDS: REMOVE OLD NICODERM (NICOTINE) PATCH T-DERMAL SCH (20:47)
[2016-09-13 06:02] VITALS: BP 104/54; PULSE 83; RESP 18; TEMP 97.3; O2SAT 98
[2016-09-13] MEDS: NICOTINE 14 MG/24 HR PATCH T-DERMAL SCH (09:00)
[2016-09-13] MEDS: ARIPiprazole 10 MG TAB PO SCH (09:16)
[2016-09-13] MEDS: HALOPERIDOL 5 MG TAB PO SCH ×2 (09:16→20:25)
--- NOTE | 2016-09-13 09:46 | HHI.PYPN ---
Subjective Remarks Patient seen and examined with counselor. Chart reviewed. Case discussed with nursing staff reports the patient has been no behavioral problem. On my examination today, the patient remains somewhat forgetful and requires frequent repetition and reassurance regarding plan for administration of final penicillin injection and possible discharge on Friday. No isaiah psychotic symptoms though. No SI or HI. Agreeable to receiving Abilify Maintena today, and I will order this. We discussed follow-up plan after discharge. Denies side effects from medications. No physical complaints. Review of Systems ROS Limitations: Poor Historian Except as stated in HPI: all other systems reviewed are Neg Objective Alert: Yes [place]: Person, Place, Date (approximate) Mood: Calm Affect: Blunted (somewhat childlike) Memory Intact: Comment (remains somewhat forgetful) Hallucinations: Other (no AVH) Delusions: No Delusion Type: Other (No delusions) Suicidal: Ideation (no SI voiced) Homicidal: Ideation (no HI voiced) Insight/Judgment Poor Remarks No motor abnormalities noted Labs Labs reviewed Vitals/IOs Vital Signs Date Time Temp Pulse Resp B/P Pulse Ox O2 Delivery O2 Flow Rate FiO2 09/13/16 06:02 97.3 83 18 104/54 98 Assessment & Plan Problem List: (1) Schizophrenia ICD Code: F20.9 Assessment & Plan Abilify Maintena 400mg IM today. Continue oral Abilify supplementation. Continue other psychotropics as ordered. Continue other medications and care as ordered. Justification for Cont. Inpt. High risk for decompensation in a less restrictive environment. Discharge Planning Anticipate discharge home Friday barring some clinical worsening. Request HC Surrog/Guard Advoc?: Yes Problem Qualifiers (1) Schizophrenia: Qualified Code: F20.3 - Undifferentiated schizophrenia Dominguez Agarwal MD Sep 13, 2016 09:46
--- NOTE | 2016-09-13 13:31 | HHI.PR ---
Addendum to Inpatient Note Addendum Reason: Additional Documentation Additional Information d/w repeat RPR down trending. In absence of neuro signs and given age Neurosyphilis not likely. No need for LP or Neuroimaging. Will sign off please call back if any change in clinical condition or questions. Brynn Thomason MD Sep 13, 2016 13:31
[2016-09-13 15:30] VITALS: BP 132/69; PULSE 77; RESP 17; TEMP 97.8; O2SAT 97
[2016-09-13] MEDS: traZODone HCL 50 MG TAB PO SCH (20:25)
[2016-09-13] MEDS: REMOVE OLD NICODERM (NICOTINE) PATCH T-DERMAL SCH (20:27)
[2016-09-14 06:00] VITALS: BP 115/56; PULSE 81; RESP 17; TEMP 97.4; O2SAT 96
[2016-09-14] MEDS: HALOPERIDOL 5 MG TAB PO SCH ×2 (08:43→21:41)
[2016-09-14] MEDS: NICOTINE 14 MG/24 HR PATCH T-DERMAL SCH (08:43)
[2016-09-14] MEDS: ARIPiprazole 10 MG TAB PO SCH (08:43)
--- NOTE | 2016-09-14 12:19 | HHI.PYPN ---
Subjective Remarks Pt seen and discussed with staff. Pt remains disorganized but psychomotor agitation has decreased significantly. He is compliant with medications and denies side effects. Less intrusive and more easily directed. He denies SI/HI Objective Alert: Yes [place]: Person, Place, Date Mood: Calm Affect: Blunted (somewhat childlike) Memory Intact: Comment (fair) Hallucinations: Other (no AVH) Delusions: No Delusion Type: Other (No delusions) Suicidal: Ideation (no SI voiced) Homicidal: Ideation (no HI voiced) Insight/Judgment poor Remarks disorganized Vitals/IOs Vital Signs Date Time Temp Pulse Resp B/P Pulse Ox O2 Delivery O2 Flow Rate FiO2 09/14/16 06:00 97.4 81 17 115/56 96 Assessment & Plan Problem List: (1) Schizophrenia ICD Code: F20.9 Assessment & Plan Continue current tx plan. Estimated LOS: days Justification for Cont. Inpt. risk of decompensation Request HC Surrog/Guard Advoc?: Yes Problem Qualifiers (1) Schizophrenia: Qualified Code: F20.3 - Undifferentiated schizophrenia Rosemarie Doshi MD Sep 14, 2016 12:19
[2016-09-14 15:20] VITALS: BP 115/56; PULSE 83; RESP 18; TEMP 98.9; O2SAT 97
[2016-09-14] MEDS: ACETAMINOPHEN 325 MG TAB PO PRN (18:07)
[2016-09-14] MEDS: REMOVE OLD NICODERM (NICOTINE) PATCH T-DERMAL SCH (21:00)
[2016-09-14] MEDS: traZODone HCL 50 MG TAB PO SCH (21:41)
[2016-09-15 06:02] VITALS: BP 105/66; PULSE 89; RESP 16; TEMP 97.7; O2SAT 99
[2016-09-15] MEDS: HALOPERIDOL 5 MG TAB PO SCH ×2 (10:06→20:45)
[2016-09-15] MEDS: NICOTINE 14 MG/24 HR PATCH T-DERMAL SCH (10:06)
[2016-09-15] MEDS: ARIPiprazole 10 MG TAB PO SCH (10:06)
[2016-09-15] MEDS: ACETAMINOPHEN 325 MG TAB PO PRN ×4 (11:07→23:23)
--- NOTE | 2016-09-15 14:46 | HHI.PYPN ---
Subjective Remarks Pt seen and discussed with staff. Pt has been intrusive today and remains disorganized. He states that he doesn't " have any psychotic disorders." He has been compliant with medications. No SI/HI. Objective Alert: Yes [place]: Person, Place, Date Mood: Calm Affect: Restricted Memory Intact: Comment (fair) Hallucinations: Other (no AVH) Delusions: No Delusion Type: Other (No delusions) Suicidal: Ideation (no SI voiced) Homicidal: Ideation (no HI voiced) Insight/Judgment poor Vitals/IOs Vital Signs Date Time Temp Pulse Resp B/P Pulse Ox O2 Delivery O2 Flow Rate FiO2 09/15/16 06:02 97.7 89 16 105/66 99 Assessment & Plan Problem List: (1) Schizophrenia ICD Code: F20.9 Assessment & Plan Continue current tx plan. Estimated LOS: days Justification for Cont. Inpt. impairments in self care, social functioning Request HC Surrog/Guard Advoc?: Yes Problem Qualifiers (1) Schizophrenia: Qualified Code: F20.3 - Undifferentiated schizophrenia Rosemarie Doshi MD Sep 15, 2016 14:46
[2016-09-15] MEDS: LORazepam 1 MG TAB PO PRN (19:25)
[2016-09-15 19:26] VITALS: BP 117/66; PULSE 75; TEMP 98.2; O2SAT 99
[2016-09-15] MEDS: traZODone HCL 50 MG TAB PO SCH (20:45)
[2016-09-15] MEDS: REMOVE OLD NICODERM (NICOTINE) PATCH T-DERMAL SCH (21:00)
[2016-09-16 05:55] VITALS: BP 113/58; PULSE 78; RESP 18; TEMP 97.8; O2SAT 96
[2016-09-16] MEDS: ARIPiprazole 10 MG TAB PO SCH (09:33)
[2016-09-16] MEDS: HALOPERIDOL 5 MG TAB PO SCH ×2 (09:33→20:30)
[2016-09-16] MEDS: NICOTINE 14 MG/24 HR PATCH T-DERMAL SCH (09:34)
--- NOTE | 2016-09-16 09:43 | HHI.PYPN ---
Subjective Remarks Patient seen and examined with counselor and nurse. Chart reviewed. Case discussed with nursing staff reports the patient has been no behavioral problem overnight. On my examination today, the patient is in good spirits. He remains fairly discharge focused. He denies any SI, HI or AVH. He denies side effects from medications. The Abilify Maintena injection was not administered over the weekend for unclear reasons, and the patient has the presence of mind to ask for it today. I will order this medication for today. No physical complaints. No side effects from medications. Review of Systems Except as stated in HPI: all other systems reviewed are Neg Objective Alert: Yes [place]: Person, Place, Date Mood: Calm Affect: Blunted Memory Intact: Comment (fair) Hallucinations: Other (no audiovisual hallucinations) Delusions: No Delusion Type: Other (no delusional material) Suicidal: Ideation (no suicidal ideation) Homicidal: Ideation (no homicidal ideation) Insight/Judgment Poor Remarks No abnormal motor movements noted Labs Labs reviewed. Vitals/IOs Vital Signs Date Time Temp Pulse Resp B/P Pulse Ox O2 Delivery O2 Flow Rate FiO2 09/16/16 05:55 97.8 78 18 113/58 96 Assessment & Plan Problem List: (1) Schizophrenia ICD Code: F20.9 Assessment & Plan Administer Abilify Maintena today. I have reduced the dose to within the range recommended by the automatic drilling machine operator owing administration of long-acting injectable and will plan to continue oral Abilify for 2 weeks as recommended. Psychoeducation provided to the patient regarding need for supplementation with oral Abilify. Continue Haldol as ordered. Continue carbamazepine as ordered. Continue to monitor on the inpatient unit. Plan for final penicillin injection tomorrow. Continue other medications and care as ordered. Justification for Cont. Inpt. Final discharge planning. Discharge Planning Anticipate discharge home tomorrow following final penicillin injection barring some clinical deterioration. Request HC Surrog/Guard Advoc?: Yes Problem Qualifiers (1) Schizophrenia: Qualified Code: F20.3 - Undifferentiated schizophrenia Dominguez Agarwal MD Sep 16, 2016 09:43
[2016-09-16] MEDS ORDERED: [UNRECOGNIZED DRUG - OTHER] IM ONE (09:45)
[2016-09-16] MEDS ORDERED: ABILIFY MAINTENA 400 MG IM ONE (09:45)
[2016-09-16] MEDS: ACETAMINOPHEN 325 MG TAB PO PRN ×2 (10:30→15:10)
[2016-09-16] MEDS: LORazepam 1 MG TAB PO PRN (15:10)
[2016-09-16 18:31] VITALS: BP 147/63; PULSE 96; RESP 16; TEMP 99.4; O2SAT 96
[2016-09-16] MEDS: traZODone HCL 50 MG TAB PO SCH (20:30)
[2016-09-16] MEDS: REMOVE OLD NICODERM (NICOTINE) PATCH T-DERMAL SCH (20:31)
[2016-09-17 06:01] VITALS: BP 119/58; PULSE 75; RESP 16; TEMP 97.6; O2SAT 98
[2016-09-17] MEDS: HALOPERIDOL 5 MG TAB PO SCH (08:53)
[2016-09-17] MEDS: NICOTINE 14 MG/24 HR PATCH T-DERMAL SCH (08:54)
[2016-09-17] MEDS ORDERED: ARIPiprazole 15 MG TAB PO SCH (09:00)
[2016-09-17] MEDS: PENICILLIN G BENZATHINE 2,400,000 UNITS/4 ML SYRINGE IM SCH (09:18)
[2016-09-17] MEDS ORDERED: ARIP10IN IM (09:33)
[2016-09-17] MEDS ORDERED: HALO5TAB PO (09:33)
[2016-09-17] MEDS ORDERED: TRAZ50TA12 PO (09:33)
[2016-09-17] MEDS ORDERED: ARIP1TAB13 PO (09:33)
[2016-09-17] MEDS ORDERED: CARB100C PO (09:33)
--- NOTE | 2016-09-17 09:33 | HHI.DS ---
Psychiatry Discharge Summary Inpatient Psychiatric care?: Yes Advance Directive: No Reason Not Provided: Patient unable to sign. Mental Health AdvanceDirective: No Health Care Proxy: No Admission Admission Date August 20, 2016 at 16:09 Admission Diagnosis: (1) Other psychotic disorder not due to a substance or known physiological condition ICD Code: F28 Brief History Mr. Moses is a 21-year-old male with a chart history of psychosis versus bipolar disorder who was brought in under a Schreiber act by law enforcement alleging that he did not feel right in his head and stated he might hurt himself. Reviewing our electronic medical record, I see the patient has an extensive history of inpatient psychiatric admissions, most recently in December of last year when I discharged him AGAINST MEDICAL ADVICE. Patient seen and examined. Chart reviewed. Case discussed with nurse on the inpatient unit. On my examination today, the patient presents as quite impulsive and intrusive. He is distractible. Thought process is disorganized with some degree of loosening of associations. He appears internally stimulated although he denies AVH. His affect is somewhat expansive and he is noted to be dancing and otherwise gesticulating in the halls. Of his reason for coming into the hospital he says "I just wanted a refill on my medications or change." He denies any suicidal or homicidal ideation but appears unreliable to contract for safety in his present state. He reports that his sleep and appetite have been fair. Psychiatric interview was somewhat limited because of his thought disorder. He is quite perseverative on discharge. I did endeavor to obtain collateral information from patient's mother and also his father over the phone at the numbers listed in the electronic medical record. I left voicemails for both of them requesting a call back. Past psychiatric history: Patient has a history of psychiatric diagnoses as noted above. He reports that he follows with a psychiatrist by the name of Marina and is prescribed lithium at a dose of 300 mg a day. He reports that he was admitted at a hospital called [facility] about 1 month ago. He denies a history of suicide attempts. Family history: Patient denies any family history of mental illness. Chemical dependency history: Patient denies any abuse of drugs or alcohol. Social history: Patient reports that he lives with his parents. He is single with no children. He does not work. He denies any or legal history. He denies any access to guns or firearms. He denies any muslim or spiritual beliefs. Tobacco Use In Past 30 Days: No Tobacco Past 30 Days Alcohol Use: Never Hospital Course Patient was admitted to a locked, inpatient psychiatric unit. A general medical consultation was obtained. An infectious disease consultation was obtained to help manage patient's syphilis. Neurosyphilis was not suspected by infectious disease, and the patient received a full course of penicillin treatment while on the inpatient unit. Patient was seen and examined on the unit by psychiatry and also visited by counselor. Psychotropic medications were adjusted. Patient tolerated medications well without side effects. Patient had improvement in his presenting psychiatric symptomatology. There was no evidence of any suicidality or homicidality on the inpatient unit. Patient's behavior improved with the benefit of psychotropic medication treatment. On the day of discharge: Patient seen and examined. Chart reviewed. Case discussed with nursing staff. Patient received his Abilify Maintena injection yesterday without incident and will receive his final penicillin injection this morning prior to discharge. Patient is in good spirits. He is looking forward to leaving the hospital today. He denies any suicidal or homicidal ideation, intent or plan. Denies any audiovisual hallucinations. No evident delusional beliefs. No issues with mood. Tolerating psychotropics well without side effects. I have reviewed his home- going psychotropic regimen with the patient, including the need for temporary oral supplementation of Abilify Maintena, with teach-back to ensure that the patient has understood his medication regimen. Patient has no physical complaints. Counselor informs me that the patient's mother is eager to have the patient home today. Weighing the acute, chronic, and protective factors and based on the available evidence, I promotions assistant sales marketing to a reasonable degree of medical certainty that the patient is at low imminent risk of harm to self or others from a mental illness as defined under the Schreiber act and his level of function is adequate for outpatient care. Patient has maximized benefit from this inpatient psychiatric hospital stay and will be discharged today into his mother 's care with psychiatric follow-up as arranged by counselor. Patient is also follow-up with primary care as well as infectious disease. I have counseled the patient to return to the psychiatric emergency room for any concerning psychiatric symptoms. Results Blood Pressure 119 / 58 Vital Signs Date Time Temp Pulse Resp B/P Pulse Ox O2 Delivery O2 Flow Rate FiO2 09/17/16 06:01 97.6 75 16 119/58 98 Item Value Date Time White Blood Count 8.8 TH/MM3 08/23/16 0953 Hemoglobin 14.7 GM/DL 08/23/16 0953 Platelet Count 215 TH/MM3 08/23/16 0953 Sodium Level 139 MEQ/L 08/23/16 0953 Potassium Level 3.8 MEQ/L 08/23/16 0953 Chloride Level 105 MEQ/L 08/23/16 0953 Carbon Dioxide Level 25.8 MEQ/L 08/23/16 0953 Blood Urea Nitrogen 10 MG/DL 08/23/16 0953 Creatinine 0.89 MG/DL 08/23/16 0953 Estimat Glomerular Filtration Rate 109 ML/MIN 08/23/16 0953 Hemoglobin A1c 5.2 % 08/23/16 0953 Aspartate Amino Transf (AST/SGOT) 75 U/L H 08/20/16 1020 Alanine Aminotransferase (ALT/SGPT) 51 U/L 08/20/16 1020 Alkaline Phosphatase 82 U/L 08/20/16 1020 Thyroid Stimulating Hormone 3rd Gen 1.060 uIU/ML 08/23/16 0953 Carbamazepine (Tegretol) Level 6.4 MCG/ML 09/09/16 0713 Rheumatoid Factor Screen NEGATIVE 09/05/16 1929 Rapid Plasma Reagin Titer 1:8 H 08/30/16 0837 Rapid Plasma Reagin REACTIVE H 08/30/16 0837 Summary of Procedures None done Imaging None done Pending results at discharge: No Medications # of Antipsychotic meds at D/C: 2 Appropriate >1 Antipsych meds?: 4 Approp Antipsych med options 1 - Minimum of three failed multiple trials of monotherapy. 2 - Documented plan to taper to monotherapy due to previous use of multiple meds OR cross-taper in progress at D/C. 3 - Documentation of augmentation of Clozapine. 4 - Justification other than those listed in allowable values 1-3, document here : Inadequate response to monotherapy. Discharge Discharge Date: Sep 17, 2016 Discharge Diagnosis: (1) Schizophrenia Diagnosis: Principal (stable) ICD Code: F20.9 GAF on discharge is 55 Mental Status Exam at Disch Patient is casually dressed. He is fairly well groomed and certainly maintaining basic hygiene. He is awake and alert and oriented to person, hospital and date. No evidence of delirium. No abnormal motor movements noted. Speech is within normal limits for rate, tone and volume. Language and fund of knowledge seemed average. Mood is good and affect is blunted. Thought process somewhat perseverative on discharge but generally linear. No loosening of associations. No evident delusional material. Denies audiovisual hallucinations. Denies suicidal or homicidal ideation, intent or plan. Insight and judgment are fair to poor, likely patient's chronic condition. Pt Condition on Discharge: Stable Discharge Disposition: Discharge Home Discharge Instructions Diet Instructions: As Tolerated, No Restrictions Activities you can perform: Weight Bearing as Esteban Scheduled Appointment: as per counselor's notes New Medications: Aripiprazole Maintena Dual Chamber Inj (Abilify Maintena Dual Chamber Inj) 400 Mg Inj 400 MG IM Q28D This dose of Abilify Maintena is due on 10/14/2016. Mental Health # 1 Ref 0 SYRINGE Aripiprazole (Aripiprazole) 15 Mg Tab 15 MG PO DAILY Take for 14 days then stop. Be sure to get your next Abilify Maintena injection. Mental Health Days 14 Ref 0 TAB Carbamazepine (Carbamazepine) 100 Mg Chew 150 MG PO BID Mental Health Days 15 Ref 1 EA Haloperidol (Haloperidol) 5 Mg Tab 5 MG PO BID Mental Health Days 15 Ref 1 TAB Trazodone (Trazodone) 50 Mg Tab 50 MG PO HS Sleep Days 15 Ref 1 TAB Discontinued Medications: Diphenhydramine HCl (Benadryl) 25 Mg Cap 50 MG PO DAILY CAP [place] Carbonate (Lithotabs) 300 Mg Tab 300 MG PO qhs TAB Lorazepam (Lorazepam) 0.5 Mg Tab 0.5 MG PO DAILY TAB Quetiapine Fumarate (Quetiapine Fumarate) 25 Mg Tab 25 MG PO HS Mental Health Days 15 Ref 1 TAB Risperidone (Risperdal) 3 Mg Tab 3 MG PO HS psychosis Days 30 Ref 0 TAB Discharge Time <= 30 minutes Discharge/Advance Care Plan Health Problems: (1) Schizophrenia Goals to promote your health * To prevent worsening of your condition and complications * To maintain your health at the optimal level Directions to meet your goals Take your medications as prescribed Follow your dietary instruction Follow activity as directed Keep your appointments as scheduled Take your immunizations and boosters as scheduled If your symptoms worsen call your PCP, if no PCP go to Urgent Care Center or Emergency Room For 04/11 questions related to your inpatient stay or results of tests pending at discharge, please contact Dr. Dominguez Agarwal at Smoking is Dangerous to Your Health. Avoid second hand smoking Problem Qualifiers (1) Schizophrenia: Qualified Code: F20.3 - Undifferentiated schizophrenia Dominguez Agarwal MD Sep 17, 2016 09:33
== END 2016-09-17 15:50 | disposition home or self-care (01) | DRG 885 ==
LOC: NEPC 09:43 → NEDA 16:09 → H270 16:53
PROVIDERS: ADMIT Psychiatry & Neurology Psychiatry; ATTEND Psychiatry & Neurology Psychiatry
DX: F20.3 Undifferentiated schizophrenia (principal); R45.851 Suicidal ideations; A52.8 Late syphilis, latent; F41.9 Anxiety disorder, unspecified; Z91.19 Patient's noncompliance with other medical treatment and regimen; Z79.899 Other long term (current) drug therapy
CPT/HCPCS: 80048; 80053; 80061; 80156; 80178; 80307; 83036; 83735; 84443; 85025; 85613; 85730; 86430; 86592; 86593; 86703; 86780; 93005; 99284; J0561; J1200; J1630; J2060; Q0163